=== PATIENT | female | born 1960 | race Caucasian/White ===

== ENCOUNTER → 2016-11-13 | Outpatient (CLI) | payer OTHER ==
[~2016-11-13] MED LIST: AMLO25TA PO; ATRIPLA PO; CALCTAB68 PO; DOXY100C PO; HYDR-3713 PO; HYDR12.55 PO; K-TA10TA2 PO; LEVA500T PO; LEVO112T2 PO; LISI40TAB PO
[2016-11-15 00:06] LABS: %CD3+CD4+CD8+ 1.9 % (Not Estab.); %CD3+CD4+CD8- 45.9 % (Not Estab.); %CD3+CD4-CD8+ 29.5 % (Not Estab.); %CD3+CD4-CD8- 2.3 % (Not Estab.); ABS CD3+CD4+CD8+ 44 /uL (Not Estab.); ABS CD3+CD4+CD8- 1056 /uL (Not Estab.); ABS CD3+CD4-CD8+ 679 /uL (Not Estab.); ABS CD3+CD4-CD8- 53 /uL (Not Estab.); CD4/CD8 NYSDOH RATIO 1.56 (Not Estab.); Eosinophils 5 % (.); HCT 38.1 % (34.0-46.6); HGB 13.1 g/dL (11.1-15.9); Monocytes 8 % (.); Neutrophils 41 % (.); WBC 5.1 x10E3/uL (3.4-10.8)
== END ==
LOC: M SMT 09:26
PROVIDERS: ATTEND Internal Medicine Infectious Disease
DX: B20 Human immunodeficiency virus [HIV] disease (principal); E03.9 Hypothyroidism, unspecified; Z13.220 Encounter for screening for lipoid disorders

== ENCOUNTER → 2017-02-14 | Outpatient (CLI) | payer OTHER ==
[2017-02-14 14:19] LABS: ALBUMIN 3.5 GM/DL (3.2-5.2); ALBUMIN/GLOBULIN RATIO 0.97 (1.00-1.93); ALKALINE PHOSPHATASE 159 U/L (45-117); ALT/SGPT 26 U/L (12-78); ANION GAP 7 MEQ/L (8-16); AST/SGOT 22 U/L (15-37); BILIRUBIN,TOTAL 0.4 MG/DL (0.2-1.0); BLOOD UREA NITROGEN 16 MG/DL (7-18); CALCIUM LEVEL 8.7 MG/DL (8.5-10.1); CARBON DIOXIDE LEVEL 28 MEQ/L (21-32); CHLORIDE LEVEL 98 MEQ/L (98-107); CREATININE FOR GFR 0.96 MG/DL (0.55-1.02); GLOMERULAR FILTRATION RATE > 60.0 (>51); GLUCOSE, FASTING 101 MG/DL (70-105); POTASSIUM SERUM 4.1 MEQ/L (3.5-5.1); SODIUM LEVEL 133 MEQ/L (136-145); TOTAL PROTEIN 7.1 GM/DL (6.4-8.2)
[2017-02-16 00:06] LABS: %CD3+CD4+CD8+ 1.4 % (Not Estab.); %CD3+CD4+CD8- 48.4 % (Not Estab.); %CD3+CD4-CD8+ 27.1 % (Not Estab.); %CD3+CD4-CD8- 1.9 % (Not Estab.); ABS CD3+CD4+CD8+ 34 /uL (Not Estab.); ABS CD3+CD4+CD8- 1162 /uL (Not Estab.); ABS CD3+CD4-CD8+ 650 /uL (Not Estab.); ABS CD3+CD4-CD8- 46 /uL (Not Estab.); CD4/CD8 NYSDOH RATIO 1.79 (Not Estab.); Eosinophils 5 % (.); HCT 36.3 % (34.0-46.6); Monocytes 8 % (.); Neutrophils 42 % (.); WBC 5.4 x10E3/uL (3.4-10.8)
== END ==
LOC: M SMT 09:41
PROVIDERS: ATTEND Internal Medicine Infectious Disease
DX: B20 Human immunodeficiency virus [HIV] disease (principal); E03.9 Hypothyroidism, unspecified; Z23 Encounter for immunization
CPT/HCPCS: 36415; 80053; 81001; 84443; 86360; 87536; 90733; G0463

== ENCOUNTER → 2017-03-22 | Outpatient (CLI) | payer OTHER ==
[~2017-03-22] VITALS: Ht 162.6 cm; Wt 78.9 kg
[~2017-03-22] MED LIST changes: +CEPH250T PO; +CHLO25TA PO; +LIDOCAINE 2% INJ 100 MG/5 ML SDV (FOR ANES.) As Ordered ONE; +LISI-538 PO; +NS 1,000 ML IV ONE; +PROPOFOL 200 MG/20 ML VIAL As Ordered ONE
--- NOTE | 2017-03-22 10:07 | ROOR ---
Patient Name: Ailyn Ward Procedure Date: 03/22/2017 9:42 AM Date of : 1960 Age: 56 Room: [facility] Gender: Female Note Status: Finalized Procedure: Colonoscopy Indications: Screening for colorectal malignant neoplasm Providers: Hilario JAMES MD Referring MD: Neeru ABREU MD. Requesting Provider: Medicines: Monitored Anesthesia Care Complications: No immediate complications. Procedure: Pre-Anesthesia Assessment: - The heart rate, respiratory rate, oxygen saturations, blood pressure, adequacy of pulmonary ventilation, and response to care were monitored throughout the procedure. The Colonoscope was introduced through the anus and advanced to the cecum, identified by appendiceal orifice and ileocecal valve. The colonoscopy was performed without difficulty. The patient tolerated the procedure well. The quality of the bowel preparation was good. Findings: The perianal and digital rectal examinations were normal. A 5 mm polyp was found in the ascending colon. The polyp was semi-sessile. The polyp was removed with a cold snare. Resection and retrieval were complete. A 4 mm polyp was found in the rectum. The polyp was semi-sessile. Biopsies were taken with a cold forceps for histology. A few medium-mouthed diverticula were found in the sigmoid colon. The exam was otherwise without abnormality on direct and retroflexion views. Impression: - One 5 mm polyp in the ascending colon, removed with a cold snare. Resected and retrieved. - One 4 mm polypoid nodule in the ano-rectum. This is likely granulation/scar tissue. Biopsied. - Mild diverticulosis in the sigmoid colon. - The examination was otherwise normal on direct and retroflexion views. Recommendation: - Telephone endoscopist for pathology results in 2 weeks. - Repeat colonoscopy will be likely in 5 years, however I am awaiting pathology report. Hilario James MD Hilario JAMES MD 03/22/2017 10:06:42 AM This report has been signed electronically. Number of Addenda: 0 Note Initiated On: 03/22/2017 9:42 AM Estimated Blood Loss: Estimated blood loss: none.
[2017-03-22 10:22] VITALS: BP 130/74
== END ==
LOC: M OPP 08:42
PROVIDERS: ATTEND Internal Medicine Gastroenterology
DX: Z12.11 Encounter for screening for malignant neoplasm of colon (principal); D12.2 Benign neoplasm of ascending colon; K62.1 Rectal polyp; K57.30 Diverticulosis of large intestine without perforation or abscess without bleeding; B20 Human immunodeficiency virus [HIV] disease; E07.9 Disorder of thyroid, unspecified; I10 Essential (primary) hypertension; I51.9 Heart disease, unspecified; K92.9 Disease of digestive system, unspecified; Z89.512 Acquired absence of left leg below knee; Z85.9 Personal history of malignant neoplasm, unspecified; Z86.79 Personal history of other diseases of the circulatory system

== ENCOUNTER 2017-03-31 13:11 | Emergency (ER) | payer OTHER ==
[~2017-03-31] VITALS: Ht 162.6 cm; Wt 78.6 kg
[~2017-03-31 13:11] MED LIST changes: -CEPH250T PO; +LEVA1TAB2 PO; -LEVA500T PO; -LIDOCAINE 2% INJ 100 MG/5 ML SDV (FOR ANES.) As Ordered ONE; -NS 1,000 ML IV ONE; -PROPOFOL 200 MG/20 ML VIAL As Ordered ONE
[2017-03-31] MEDS ORDERED: K-TA10TA2 PO (13:24)
[2017-03-31] MEDS ORDERED: ACETAMINOPHEN TAB 650MG DOSE (2X325MG) PO ONE (15:00)
[2017-03-31] MEDS ORDERED: LIDOCAINE 2% W/EPIN INJ 20ML **PRES FREE As Ordered ONE (15:11)
[2017-03-31] MEDS ORDERED: LIDOCAINE 2% W/EPIN INJ 20ML **PRES FREE INJ ONE (15:15)
--- NOTE | 2017-03-31 15:21 | REP ---
AP LATERAL LEFT KNEE: 03/31/2017 CLINICAL HISTORY: Two views are provided. COMPARISON: 02/13/2015, 12/28/2012. FINDINGS: There has been a below-knee amputation in the upper one-third of the tibia. There is post amputation changes in the distal tibia and fibula. Degenerative changes are seen at the knee joint. The bones are demineralized. The distal femur shows an intramedullary kaylah into the distal femoral diametaphysis with a single transverse screw affixing it to the distal femur. There is no patellar subluxation or dislocation suggested. No fracture of any of these bones on an acute basis. There is an old fracture of the proximal fibular shaft. No definite joint effusion. No foreign body. No subcutaneous air about the bones at the amputation site. IMPRESSION: 1. Status post below-knee amputation without destructive change in the bone and with old post-traumatic changes of the proximal fibular shaft. No subcutaneous emphysema near the amputation stump. No destructive lesion. 2. Degenerative changes at the knee, some disuse atrophy and an intramedullary kaylah with a single transverse screw through the distal femoral shaft. Signed by Josse Marie MD 03/31/2017 07:42 P
[2017-03-31] MEDS ORDERED: CEPH250T PO (15:51)
[2017-03-31 15:52] VITALS: BP 136/91
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
== END 2017-03-31 15:57 | disposition home or self-care (01) ==
LOC: M ED 14:28
DX: S81.812A Laceration without foreign body, left lower leg, initial encounter (principal); W19.XXXA Unspecified fall, initial encounter; Y92.009 Unspecified place in unspecified non-institutional (private) residence as the place of occurrence of the external cause; Y93.89 Activity, other specified; Y99.8 Other external cause status; Z89.512 Acquired absence of left leg below knee; Z97.14 Presence of artificial left leg (complete) (partial); B20 Human immunodeficiency virus [HIV] disease; I10 Essential (primary) hypertension; E03.9 Hypothyroidism, unspecified; Z79.899 Other long term (current) drug therapy; F17.200 Nicotine dependence, unspecified, uncomplicated; Z87.440 Personal history of urinary (tract) infections; Z88.8 Allergy status to other drugs, medicaments and biological substances

== ENCOUNTER → 2017-07-30 | Outpatient (CLI) | payer OTHER ==
[~2017-07-30] MED LIST changes: +CEPH250T PO
[2017-07-30 14:24] LABS: ALBUMIN 3.3 GM/DL (3.2-5.2); ALBUMIN/GLOBULIN RATIO 0.97 (1.00-1.93); ALKALINE PHOSPHATASE 153 U/L (45-117); ALT/SGPT 28 U/L (12-78); ANION GAP 10 MEQ/L (8-16); AST/SGOT 24 U/L (15-37); BILIRUBIN,TOTAL 0.3 MG/DL (0.2-1.0); BLOOD UREA NITROGEN 16 MG/DL (7-18); CALCIUM LEVEL 8.6 MG/DL (8.5-10.1); CARBON DIOXIDE LEVEL 25 MEQ/L (21-32); CHLORIDE LEVEL 101 MEQ/L (98-107); CREATININE FOR GFR 0.95 MG/DL (0.55-1.02); GLOMERULAR FILTRATION RATE > 60.0 (>51); GLUCOSE, FASTING 88 MG/DL (70-105); POTASSIUM SERUM 4.1 MEQ/L (3.5-5.1); SODIUM LEVEL 136 MEQ/L (136-145); TOTAL PROTEIN 6.7 GM/DL (6.4-8.2)
[2017-08-01 14:17] LABS: Eosinophils 5 % (Not Estab.); HCT 32.4 % (34.0-46.6); HGB 11.3 g/dL (11.1-15.9); Monocytes 9 % (Not Estab.); Neutrophils 39 % (Not Estab.); WBC 4.7 x10E3/uL (3.4-10.8)
== END ==
LOC: M SMT 09:21
PROVIDERS: ATTEND Internal Medicine Infectious Disease
DX: B20 Human immunodeficiency virus [HIV] disease (principal); E03.9 Hypothyroidism, unspecified

== ENCOUNTER → 2017-12-04 | Outpatient (CLI) | payer OTHER ==
[2017-12-04 13:47] LABS: APPEARANCE, URINE HAZY (CLEAR); BACTERIA, URINE AUTO 1+ (NEGATIVE); BILIRUBIN, URINE AUTO NEGATIVE (NEGATIVE); BLOOD, URINE BLOOD NEGATIVE (NEGATIVE); COLOR, URINE YELLOW (YELLOW); GLUCOSE, URINE (UA) AUTO NEGATIVE (NEGATIVE); KETONE, URINE AUTO NEGATIVE (NEGATIVE); LEUKOCYTE ESTERASE, URINE AUTO 3+ (NEGATIVE); NITRITE, URINE AUTO NEGATIVE (NEGATIVE); PROTEIN, URINE AUTO NEGATIVE (NEGATIVE); RBC, URINE AUTO 1 /HPF (0-3); SPECIFIC GRAVITY URINE AUTO 1.008 (1.002-1.035); SQUAMOUS EPITHELIAL CELL UR AU 0 /HPF (0-6); UROBILINOGEN, URINE AUTO 0.2 mg/dL (0.0-2.0); WBC, URINE AUTO 3 /HPF (0-3)
[2017-12-04 13:54] LABS: ALBUMIN 3.5 GM/DL (3.2-5.2); ALBUMIN/GLOBULIN RATIO 0.92 (1.00-1.93); ALKALINE PHOSPHATASE 161 U/L (45-117); ALT/SGPT 37 U/L (12-78); ANION GAP 4 MEQ/L (8-16); AST/SGOT 30 U/L (7-37); BILIRUBIN,TOTAL 0.3 MG/DL (0.2-1.0); BLOOD UREA NITROGEN 22 MG/DL (7-18); CALCIUM LEVEL 8.7 MG/DL (8.5-10.1); CARBON DIOXIDE LEVEL 31 MEQ/L (21-32); CHLORIDE LEVEL 101 MEQ/L (98-107); CREATININE FOR GFR 0.92 MG/DL (0.55-1.30); GLOMERULAR FILTRATION RATE > 60.0 (>51); GLUCOSE, FASTING 75 MG/DL (70-100); POTASSIUM SERUM 4.3 MEQ/L (3.5-5.1); SODIUM LEVEL 136 MEQ/L (136-145); TOTAL PROTEIN 7.3 GM/DL (6.4-8.2)
[2017-12-06 10:14] LABS: QUANTIFERON GOLD TB Negative (Negative); TB Test (QFT) Antigen 0.24 IU/mL (.); TB Test (QFT) Antigen Minus Ni 0.02 IU/mL (.); TB Test (QFT) Mitogen 6.91 IU/mL (.); TB Test (QFT) Nil 0.22 IU/mL (.)
[2017-12-07 00:06] LABS: HIV-1 RNA PCR QUANT 2 LC550285 <20 copies/mL (.)
== END ==
LOC: M SMT 09:11
DX: B20 Human immunodeficiency virus [HIV] disease (principal); E03.9 Hypothyroidism, unspecified
CPT/HCPCS: 84443

== ENCOUNTER → 2017-12-05 | Outpatient (CLI) | payer OTHER ==
[2017-12-07 00:06] LABS: % CD8 Pos Lymph 30.6 % (12.0-35.5); %CD4 Pos Lymphs 50.3 % (30.8-58.5); ABS Eosinophils 0.3 x10E3/uL (0.0-0.4); ABS Lymphs 2.3 x10E3/uL (0.7-3.1); ABS Monocytes 0.4 x10E3/uL (0.1-0.9); ABS Neutophils 2.6 x10E3/uL (1.4-7.0); Abs CD4 Helper 1157 /uL (359-1519); Abs CD8 Suppres 704 /uL (109-897); CD4/CD8 Ratio 1.64 (0.92-3.72); Eosinophils 5 % (Not Estab.); HCT 35.1 % (34.0-46.6); Immature Grans 0 % (Not Estab.); Lymphocytes 42 % (Not Estab.); MCH 34.9 pg (26.6-33.0); MCHC 34.2 g/dL (31.5-35.7); MCV 102 fL (79-97); Monocytes 7 % (Not Estab.); Neutrophils 46 % (Not Estab.); Platelets 306 x10E3/uL (150-379); RBC 3.44 x10E6/uL (3.77-5.28); RDW 13.5 % (12.3-15.4); WBC 5.6 x10E3/uL (3.4-10.8)
== END ==
LOC: M SMT 09:04
DX: B20 Human immunodeficiency virus [HIV] disease (principal); E03.9 Hypothyroidism, unspecified
CPT/HCPCS: 36415

== ENCOUNTER → 2018-04-17 | Outpatient (CLI) | payer OTHER | LOC: M WHC 09:23 | DX: Z12.31 Encounter for screening mammogram for malignant neoplasm of breast (principal) | CPT/HCPCS: 77067 ==

== ENCOUNTER → 2018-06-27 | Outpatient (CLI) | payer OTHER ==
[2018-06-27 12:31] LABS: ALBUMIN 3.5 GM/DL (3.2-5.2); ALBUMIN/GLOBULIN RATIO 0.83 (1.00-1.93); ALKALINE PHOSPHATASE 154 U/L (45-117); ALT/SGPT 21 U/L (12-78); ANION GAP 9 MEQ/L (8-16); AST/SGOT 20 U/L (7-37); BILIRUBIN,TOTAL 0.4 MG/DL (0.2-1.0); BLOOD UREA NITROGEN 22 MG/DL (7-18); CALCIUM LEVEL 8.8 MG/DL (8.5-10.1); CARBON DIOXIDE LEVEL 27 MEQ/L (21-32); CHLORIDE LEVEL 100 MEQ/L (98-107); CHOLESTEROL LEVEL 184 MG/DL (<200); CHOLESTEROL RISK RATIO 3.172 (<5); CREATININE FOR GFR 1.19 MG/DL (0.55-1.30); GLOMERULAR FILTRATION RATE 49.8 (>51); GLUCOSE, FASTING 88 MG/DL (70-100); HDL CHOLESTEROL 58 MG/DL (>40); LDL CHOLESTEROL 106 MG/DL (<100); NON-HDL-C 126 MG/DL; SODIUM LEVEL 136 MEQ/L (136-145); THYROID STIMULATING HORMONE 0.352 uIU/ML (0.358-3.740); TOTAL PROTEIN 7.7 GM/DL (6.4-8.2); TRIGLYCERIDES LEVEL 99 MG/DL (<150)
[2018-06-27 13:58] LABS: APPEARANCE, URINE CLEAR (CLEAR); BACTERIA, URINE AUTO 1+ (NEGATIVE); BILIRUBIN, URINE AUTO NEGATIVE (NEGATIVE); BLOOD, URINE BLOOD 1+ (NEGATIVE); COLOR, URINE STRAW (YELLOW); GLUCOSE, URINE (UA) AUTO NEGATIVE (NEGATIVE); KETONE, URINE AUTO NEGATIVE (NEGATIVE); LEUKOCYTE ESTERASE, URINE AUTO 2+ (NEGATIVE); NITRITE, URINE AUTO NEGATIVE (NEGATIVE); PROTEIN, URINE AUTO NEGATIVE (NEGATIVE); RBC, URINE AUTO 1 /HPF (0-3); SPECIFIC GRAVITY URINE AUTO 1.008 (1.002-1.035); SQUAMOUS EPITHELIAL CELL UR AU 1 /HPF (0-6); UROBILINOGEN, URINE AUTO 0.2 mg/dL (0.0-2.0); WBC, URINE AUTO 1 /HPF (0-3)
[2018-07-02 14:20] LABS: % CD8 Pos Lymph 32.9 % (12.0-35.5); %CD4 Pos Lymphs 47.8 % (30.8-58.5); ABS Eosinophils 0.2 x10E3/uL (0.0-0.4); ABS Monocytes 0.5 x10E3/uL (0.1-0.9); ABS Neutophils 2.1 x10E3/uL (1.4-7.0); Abs CD4 Helper 956 /uL (359-1519); Abs CD8 Suppres 658 /uL (109-897); CD4/CD8 Ratio 1.45 (0.92-3.72); Eosinophils 5 % (Not Estab.); HCT 34.4 % (34.0-46.6); HGB 12.1 g/dL (11.1-15.9); HIV-1 RNA PCR QUANT 2 LC550285 <20 copies/mL (.); Immature Grans 0 % (Not Estab.); Lymphocytes 43 % (Not Estab.); MCH 35.2 pg (26.6-33.0); MCHC 35.2 g/dL (31.5-35.7); MCV 100 fL (79-97); Monocytes 10 % (Not Estab.); Neutrophils 42 % (Not Estab.); Platelets 319 x10E3/uL (150-379); RBC 3.44 x10E6/uL (3.77-5.28); RDW 13.4 % (12.3-15.4); WBC 4.9 x10E3/uL (3.4-10.8)
== END ==
LOC: M SMT 09:25
DX: B20 Human immunodeficiency virus [HIV] disease (principal); I10 Essential (primary) hypertension; E03.9 Hypothyroidism, unspecified
CPT/HCPCS: 84443

== ENCOUNTER → 2018-11-12 | Outpatient (CLI) | payer MEDICARE ==
[2018-11-12 14:17] LABS: APPEARANCE, URINE CLEAR (CLEAR); BACTERIA, URINE AUTO NEGATIVE (NEGATIVE); BILIRUBIN, URINE AUTO NEGATIVE (NEGATIVE); BLOOD, URINE BLOOD NEGATIVE (NEGATIVE); COLOR, URINE YELLOW (YELLOW); GLUCOSE, URINE (UA) AUTO NEGATIVE (NEGATIVE); KETONE, URINE AUTO NEGATIVE (NEGATIVE); LEUKOCYTE ESTERASE, URINE AUTO 1+ (NEGATIVE); NITRITE, URINE AUTO NEGATIVE (NEGATIVE); PROTEIN, URINE AUTO NEGATIVE (NEGATIVE); RBC, URINE AUTO 0 /HPF (0-3); SPECIFIC GRAVITY URINE AUTO 1.006 (1.002-1.035); SQUAMOUS EPITHELIAL CELL UR AU 0 /HPF (0-6); UROBILINOGEN, URINE AUTO 0.2 mg/dL (0.0-2.0); WBC, URINE AUTO 1 /HPF (0-3)
[2018-11-12 14:33] LABS: CALCIUM LEVEL 9.1 MG/DL (8.5-10.1); CREATININE FOR GFR 1.09 MG/DL (0.55-1.30); GLOMERULAR FILTRATION RATE 54.9 (>51)
[2018-11-12 14:34] LABS: ALBUMIN 3.5 GM/DL (3.2-5.2); BILIRUBIN,TOTAL 0.4 MG/DL (0.2-1.0); CHOLESTEROL RISK RATIO 2.819 (<5); THYROID STIMULATING HORMONE 0.207 uIU/ML (0.358-3.740); TOTAL PROTEIN 7.2 GM/DL (6.4-8.2)
[2018-11-13 15:42] LABS: FREE T4 1.22 NG/DL (0.76-1.46)
[2018-11-15 00:06] LABS: % CD8 Pos Lymph 34.1 % (12.0-35.5); %CD4 Pos Lymphs 46.7 % (30.8-58.5); ABS Eosinophils 0.3 x10E3/uL (0.0-0.4); ABS Lymphs 2.2 x10E3/uL (0.7-3.1); ABS Monocytes 0.5 x10E3/uL (0.1-0.9); ABS Neutophils 2.3 x10E3/uL (1.4-7.0); Abs CD4 Helper 1027 /uL (359-1519); Abs CD8 Suppres 750 /uL (109-897); CD4/CD8 Ratio 1.37 (0.92-3.72); Eosinophils 5 % (Not Estab.); HGB 12.1 g/dL (11.1-15.9); HIV-1 RNA PCR QUANT 2 LC550285 <20 copies/mL (.); Immature Grans 0 % (Not Estab.); Lymphocytes 42 % (Not Estab.); MCH 33.9 pg (26.6-33.0); MCHC 35.6 g/dL (31.5-35.7); MCV 95 fL (79-97); Monocytes 9 % (Not Estab.); Neutrophils 43 % (Not Estab.); Platelets 344 x10E3/uL (150-379); RBC 3.57 x10E6/uL (3.77-5.28); RDW 12.8 % (12.3-15.4); WBC 5.3 x10E3/uL (3.4-10.8)
== END ==
LOC: M SMT 09:23
PROVIDERS: ATTEND Internal Medicine Infectious Disease
DX: B20 Human immunodeficiency virus [HIV] disease (principal); I10 Essential (primary) hypertension; E03.9 Hypothyroidism, unspecified

== ENCOUNTER → 2019-03-06 | Outpatient (CLI) | payer MEDICARE ==
[~2019-03-06] MED LIST changes: +LISI40TA52 PO; -LISI40TAB PO
[2019-03-06 14:41] LABS: ALBUMIN 3.5 GM/DL (3.2-5.2); BILIRUBIN,TOTAL 0.7 MG/DL (0.2-1.0); CALCIUM LEVEL 9.4 MG/DL (8.5-10.1); CREATININE FOR GFR 1.23 MG/DL (0.55-1.30); GLOMERULAR FILTRATION RATE 47.7 (>51); POTASSIUM SERUM 4.4 MEQ/L (3.5-5.1); THYROID STIMULATING HORMONE 0.061 uIU/ML (0.358-3.740); TOTAL PROTEIN 6.9 GM/DL (6.4-8.2)
[2019-03-06 16:17] LABS: FREE T4 1.5 NG/DL (0.76-1.46)
[2019-03-06 16:59] LABS: TOTAL T3 115.6 NG/DL (60.0-181.0)
[2019-03-12 00:08] LABS: HIV-1 RNA PCR QUANT 2 LC550285 <20 copies/mL (.)
== END ==
LOC: M SMT 09:11
PROVIDERS: ATTEND Internal Medicine Infectious Disease
DX: B20 Human immunodeficiency virus [HIV] disease (principal); E03.9 Hypothyroidism, unspecified

== ENCOUNTER → 2019-03-09 | Outpatient (CLI) | payer MEDICARE ==
[2019-03-10 14:11] LABS: % CD8 Pos Lymph 32.4 % (12.0-35.5); %CD4 Pos Lymphs 45.2 % (30.8-58.5); ABS Eosinophils 0.2 x10E3/uL (0.0-0.4); ABS Lymphs 2.1 x10E3/uL (0.7-3.1); ABS Monocytes 0.5 x10E3/uL (0.1-0.9); ABS Neutophils 3.5 x10E3/uL (1.4-7.0); Abs CD4 Helper 949 /uL (359-1519); Abs CD8 Suppres 680 /uL (109-897); Eosinophils 4 % (Not Estab.); HCT 35.3 % (34.0-46.6); Immature Grans 0 % (Not Estab.); Lymphocytes 33 % (Not Estab.); MCH 34.3 pg (26.6-33.0); MCV 101 fL (79-97); Monocytes 8 % (Not Estab.); Neutrophils 55 % (Not Estab.); Platelets 322 x10E3/uL (150-450); RDW 13.1 % (12.3-15.4); WBC 6.3 x10E3/uL (3.4-10.8)
== END ==
LOC: M SMT 09:07
PROVIDERS: ATTEND Internal Medicine Infectious Disease
DX: B20 Human immunodeficiency virus [HIV] disease (principal); E03.9 Hypothyroidism, unspecified

== ENCOUNTER 2019-04-25 13:18 | Observation (INO) | payer MEDICARE ==
[~2019-04-25] VITALS: Ht 162.6 cm; Wt 82.7 kg
[2019-04-25 17:06] LABS: BASO % 0.2 % (0.0-1.0); EOS # 0.1 10^3/uL (0.0-0.50); EOS % 0.6 % (0.0-3.0); HEMATOCRIT 34.9 % (36.0-47.0); HEMOGLOBIN 12.5 g/dl (12.0-15.5); LYMPH # 2.8 10^3/uL (1.5-4.5); LYMPH % 22.4 % (24.0-44.0); MEAN CORPUSCULAR HEMOGLOBIN 34.4 pg (27.0-33.0); MEAN CORPUSCULAR HGB CONC 35.8 g/dl (32.0-36.5); MEAN CORPUSCULAR VOLUME 96.1 fl (80.0-96.0); MONO # 1.2 10^3/uL (0.0-0.8); MONO % 9.7 % (0.0-5.0); NEUTROPHILS # 8.2 10^3/uL (1.8-7.7); NEUTROPHILS % 66.9 % (36.0-66.0); PLATELET COUNT, AUTOMATED 307 10^3/uL (150-450); RED BLOOD COUNT 3.63 10^6/uL (4.00-5.40); WHITE BLOOD COUNT 12.3 10^3/uL (4.0-10.0)
[2019-04-25 17:19] LABS: D-DIMER QUANT 420.32 ng/ml (<500)
[2019-04-25 17:27] LABS: BLOOD UREA NITROGEN 16 MG/DL (7-18); CARBON DIOXIDE LEVEL 28 MEQ/L (21-32); CHLORIDE LEVEL 95 MEQ/L (98-107); CREATININE FOR GFR 1.18 MG/DL (0.55-1.30); GLOMERULAR FILTRATION RATE 50.1 (>51); GLUCOSE, FASTING 95 MG/DL (70-100); POTASSIUM SERUM 3.5 MEQ/L (3.5-5.1); SODIUM LEVEL 132 MEQ/L (136-145)
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
[2019-04-25] MEDS ORDERED: ISOVUE-370 76% 100ML VIAL (Q9967) As Ordered ONE (19:11)
[2019-04-25 19:22] LABS: INR 1.01
[2019-04-25 19:23] LABS: PARTIAL THROMBOPLASTIN TIME 32.5 SECONDS (25.0-38.4)
[2019-04-25 19:37] LABS: NT-PRO BNP 238 PG/ML (<125); TROPONIN I < 0.02 NG/ML (< 0.10)
[2019-04-25] MEDS ORDERED: NS 500 ML IV ONE (20:00)
--- NOTE | 2019-04-25 20:46 | REPVR ---
EXAM: CT Angiography Chest With Contrast EXAM DATE/TIME: 04/25/2019 7:38 PM CLINICAL HISTORY: 58 years old, female; Other: Dvt; Additional info: Dvt, R/O pe TECHNIQUE: Imaging protocol: Axial computed tomographic angiography images of the chest with intravenous contrast using CT angiography protocol. Coronal and sagittal reformatted images were created and reviewed. 3D rendering: MIP reconstructed images were created and reviewed. Radiation optimization: All CT scans at this facility use at least one of these dose optimization techniques: automated exposure control; mA and/or kV adjustment per patient size (includes targeted exams where dose is matched to clinical indication); or iterative reconstruction. Contrast material: ISOVUE 370; Contrast volume: 75 ml; Contrast route: IV; COMPARISON: CT ANGIO CHEST 11/14/2014 6:04 PM FINDINGS: Pulmonary arteries: Normal. No pulmonary emboli. Aorta: Unremarkable. No aortic aneurysm. No aortic dissection. Lungs: Paraseptal type emphysema at the lung apices. 4 mm groundglass nodule right lower lobe (series 402 image 42 unchanged from previous. 2 mm groundglass nodule right upper lobe (series 42 image 20) without change . Pleural-based nodule left mid lung field measuring 3.2 mm (series 402 image 34) unchanged. Pleural space: No pleural fluid. No pneumothorax. Heart: Unremarkable. No cardiomegaly. No pericardial effusion. Mediastinum: There's a small sliding hiatal hernia. Gallbladder and bile ducts: Surgical clips in the gallbladder fossa. Stomach and bowel: Diverticula noted at the level of the hepatic flexure. No diverticulitis seen. Lymph nodes: Unremarkable. No enlarged lymph nodes. Bones/joints: Unremarkable. No acute fracture. Soft tissues: Unremarkable. IMPRESSION: 1. No acute pulmonary embolism 2. Stable bilateral pulmonary nodules. No followup required. 3. Small sliding hiatal hernia 4. Colonic diverticula. Electronically signed by: Gricel Campa On 04/25/2019 20:46:19 PM
[2019-04-25] MEDS: BIKTARVY PO SCH (21:00)
[2019-04-25] MEDS ORDERED: ENOXAPARIN 100MG/1ML SYRINGE (J1650) SC SCH (21:00)
[2019-04-25] MEDS ORDERED: BIKT1TAB PO (21:54)
[2019-04-25] MEDS ORDERED: ACETAMINOPHEN TAB 650MG DOSE (2X325MG) PO PRN (23:00)
[2019-04-25] MEDS ORDERED: CALCCAP4 PO (23:04)
[2019-04-25] MEDS ORDERED: LEVO100T5 PO (23:04)
--- NOTE | 2019-04-25 23:09 | HPEPDOC ---
General Date of Admission 04/25/19 Date of Service: Apr 25, 2019 Primary Care Physician: Neeru Perry MD Attending Physician: TOM CRAIG MD Chief Complaint The patient is a 58-year-old female admitted with a reason for visit of Skin Issue. Source: Patient Exam Limitations: No limitations Timing/Duration: Unsure Severity: Mild Associated Symptoms: Unobtainable History of Present Illness 58 years old white female with past medical history of HIV positive status post cholecystectomy. Left BKA, status post , history of hypertension, history of hypothyroidism, presented with chief complaints of small open area at the stump of left leg not improving and also swelling and increased pain to the to the left leg) popliteal. Unable to the prosthesis on. Patient denies fever, nausea, vomiting, abdominal pain, chest pain, shortness of breath, etc. Home Medications Scheduled Calcium/Vitamin D (Calcium 600 + D 600-400 mg-Unit) 1 Tab Tab, 1 TAB PO BID, (Reported) Chlorthalidone (Chlorthalidone) 25 Mg Tab, 25 MG PO DAILY, (Reported) Levothyroxine Sodium (Levothyroxine Sodium) 112 Mcg Tab, 112 MCG PO DAILY, ( Reported) Lisinopril (Lisinopril) 20 Mg Tab, 20 MG PO DAILY, (Reported) Miscellaneous Medications Bictegrav/Emtricit/Tenofov Ala (Biktarvy 50-200-25 mg Tablet) 1 Each Tablet, (Reported) Allergies Coded Allergies: atenolol (Verified Allergy, Unknown, 04/25/19) Past Medical History Medical History HIV positive status post cholecystectomy, , left BKA, hypertension, hypothyroidism Surgical History As above Family History Significant Family History: No pertinent family hx Social History * Smoker: Denies Alcohol: Denies Drugs: denies A-FIB/CHADSVASC A-FIB History Current/History of A-Fib/PAF?: No Review of Systems Constitutional: Denies: Chills, Fever, Malaise, Night Sweats, Weakness, Fatigue, Weight Loss, Lethargy, Other Eyes: Denies: Pain, Vision change, Conjunctivae inflammation, Eyelid inflamma tion, Redness, Other ENT: Denies: Head Aches, Ear Pain, Dysphagia, Sinus Congestion, Post Nasal Drip, Sore Throat, Epistaxis, Other Symptoms Skin: Denies: Rash, Lesions, Jaundice, Bruising, Itching, Dry, Breakdown, Nail Changes, Other Pulmonary: Denies: Dyspnea, Cough, Pleuritic Chest Pain, Other Symptoms Cardiovascular: Denies: Chest Pain, Palpitations, Orthopnea, Paroxysmal Noc. Dyspnea, Edema, Lt Headedness, Other Symptoms Gastrointestinal: Denies: Nausea, Vomiting, Abdominal Pain, Diarrhea, Constipation, Melena, Hematochezia, Other Symptoms Genitourinary: Denies: Dysuria, Frequency, Incontinence, Hematuria, Retention, Other Symptoms Hematologic: Denies: Bruising, Bleeding Excessively, Petecchia, Purpura, Enlarged Lymph Nodes, Other Hematologic Endocrine: Denies: Polydipsia, Polyphagia, Polyuria, Heat Intolerance, Cold Intolerance, Other Endocrine Sx Musculoskeletal: Reports: Other Symptoms (pain and swelling at the left popliteal area just above the left stump) Neurological: Denies: Weakness, Numbness, Incoordination, Change in speech, Confusion, Seizures, Other Symptoms Psych: Denies: Mood Normal, Anxiety, Depression, Memory Issues, Thoughts of Self Harm, Anger, Thoughts of Harming Other, Other Psych Physical Examination General Exam: Positive: Alert, Cooperative Eye Exam: Positive: PERRLA, Conjunctiva & lids normal ENT Exam: Positive: Atraumatic Neck Exam: Positive: Supple Chest Exam: Positive: Clear to auscultation, Normal air movement Heart Exam: Positive: Rate Normal, Normal S1, Normal S2 Abdomen Exam: Positive: Normal bowel sounds, Soft Extremity Exam: Positive: Other (small area of tenderness and swelling and popliteal area just above the left stump) Skin Exam: Positive: Nl turgor and temperature Neuro Exam: Positive: Normal Speech, Strength at 5/5 X4 ext, Sensation Intact Psych Exam: Positive: Mental status NL, Mood NL, Oriented x 3 Vital Signs Vital Signs Date Time Temp Pulse Resp B/P (MAP) Pulse Ox O2 Delivery O2 Flow Rate FiO2 04/25/19 19:57 99.4 74 18 124/84 (97) 100 Room Air 04/25/19 16:10 2.0 Laboratory Data Labs 24H Laboratory Tests 2 04/25/19 16:52: Immature Granulocyte % (Auto) 0.2, White Blood Count 12.3H, Red Blood Count 3.63L, Hemoglobin 12.5, Hematocrit 34.9L, Mean Corpuscular Volume 96.1H, Mean Corpuscular Hemoglobin 34.4H, Mean Corpuscular Hemoglobin Concent 35.8, Red Cell Distribution Width 11.7, Platelet Count 307, Neutrophils (%) (Auto) 66.9H, Lymphocytes (%) (Auto) 22.4L, Monocytes (%) (Auto) 9.7H, Eosinophils (%) (Auto) 0.6, Basophils (%) (Auto) 0.2, Neutrophils # (Auto) 8.2H, Lymphocytes # (Auto) 2.8, Monocytes # (Auto) 1.2H, Eosinophils # (Auto) 0.1, Basophils # (Auto) 0.0, Nucleated Red Blood Cells % (auto) 0.0, Prothrombin Time 13.0, Prothromb Time International Ratio 1.01, Activated Partial Thromboplast Time 32.5, D-Dimer, Quantitative 420.32, Anion Gap 9, Glomerular Filtration Rate 50.1L, Blood Urea Nitrogen 16, Creatinine 1.18, Sodium Level 132L, Potassium Level 3.5, Chloride Level 95L, Carbon Dioxide Level 28, Calcium Level 9.0, Troponin I < 0.02, FH-Pkg-Z-Type Natriuretic Peptide 238H 04/25/19 20:14: 04/25/19 20:15: CBC/BMP Laboratory Tests 04/25/19 16:52 Red Blood Count 3.63 L, Mean Corpuscular Volume 96.1 H, Mean Corpuscular Hemoglobin 34.4 H, Mean Corpuscular Hemoglobin Concent 35.8, Red Cell Distribution Width 11.7, Neutrophils (%) (Auto) 66.9 H, Lymphocytes (%) (Auto) 22.4 L, Monocytes (%) (Auto) 9.7 H, Eosinophils (%) (Auto) 0.6, Basophils (%) (Auto) 0.2, Neutrophils # (Auto) 8.2 H, Lymphocytes # (Auto) 2.8, Monocytes # (Auto) 1.2 H, Eosinophils # (Auto) 0.1, Basophils # (Auto) 0.0, Calcium Level 9.0 Problems (1) DVT (deep venous thrombosis) Status: Acute Problem Text: Admit to observation to medical floor Start Lovenox 1 mg/kg every 12 hours Will request medical consultation with Dr. sethi available on saturday Can be started on by mouth anticoagulation in a.m. Continue home medications PT eval in a.m. DVT prophylaxis not needed as patient is receiving full strength Lovenox Regular diet HIV meds as per Dr. sethi Plan / VTE VTE Prophylaxis Ordered?: Yes TOM CRAIG MD Apr 25, 2019 23:08
[2019-04-26 00:40] VITALS: BP 125/89
[2019-04-26 06:00] VITALS: BP 120/66
[2019-04-26 06:45] LABS: HEMATOCRIT 31.8 % (36.0-47.0); HEMOGLOBIN 11.1 g/dl (12.0-15.5); MEAN CORPUSCULAR HEMOGLOBIN 34.8 pg (27.0-33.0); MEAN CORPUSCULAR HGB CONC 34.9 g/dl (32.0-36.5); MEAN CORPUSCULAR VOLUME 99.7 fl (80.0-96.0); PLATELET COUNT, AUTOMATED 274 10^3/uL (150-450); RED BLOOD COUNT 3.19 10^6/uL (4.00-5.40); WHITE BLOOD COUNT 8.3 10^3/uL (4.0-10.0)
[2019-04-26] MEDS ORDERED: ELIQ5TAB PO (07:09)
[2019-04-26 07:12] LABS: BILIRUBIN,TOTAL 1.1 MG/DL (0.2-1.0); CALCIUM LEVEL 8.9 MG/DL (8.5-10.1); CREATININE FOR GFR 1.17 MG/DL (0.55-1.30); GLOMERULAR FILTRATION RATE 50.6 (>51); POTASSIUM SERUM 3.3 MEQ/L (3.5-5.1); TOTAL PROTEIN 7.3 GM/DL (6.4-8.2)
[2019-04-26] MEDS: LISINOPRIL 20 MG TAB PO SCH (09:00)
[2019-04-26] MEDS ORDERED: POTASSIUM CHLORIDE 10 MEQ SR TABLET PO ONE (09:15)
[2019-04-26] MEDS: LEVOTHYROXINE 100MCG TABLET (0.1MG) PO SCH (10:19)
[2019-04-26] MEDS: APIXABAN 5 MG TAB (ELIQUIS) PO SCH ×2 (10:19→21:59)
[2019-04-26 14:00] VITALS: BP 134/85
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
[2019-04-26] MEDS: BIKTARVY PO SCH (21:59)
[2019-04-26 22:00] VITALS: BP 121/80
[2019-04-27] MEDS: LEVOTHYROXINE 100MCG TABLET (0.1MG) PO SCH (05:49)
[2019-04-27 06:00] VITALS: BP 136/69
[2019-04-27 06:46] LABS: BASO % 0.6 % (0.0-1.0); EOS # 0.2 10^3/uL (0.0-0.50); EOS % 2.3 % (0.0-3.0); HEMATOCRIT 31.9 % (36.0-47.0); HEMOGLOBIN 11.2 g/dl (12.0-15.5); LYMPH # 2.4 10^3/uL (1.5-4.5); LYMPH % 37.1 % (24.0-44.0); MEAN CORPUSCULAR HEMOGLOBIN 34.9 pg (27.0-33.0); MEAN CORPUSCULAR HGB CONC 35.1 g/dl (32.0-36.5); MEAN CORPUSCULAR VOLUME 99.4 fl (80.0-96.0); MONO # 0.7 10^3/uL (0.0-0.8); MONO % 11.2 % (0.0-5.0); NEUTROPHILS # 3.1 10^3/uL (1.8-7.7); NEUTROPHILS % 48.5 % (36.0-66.0); PLATELET COUNT, AUTOMATED 287 10^3/uL (150-450); RED BLOOD COUNT 3.21 10^6/uL (4.00-5.40); WHITE BLOOD COUNT 6.4 10^3/uL (4.0-10.0)
[2019-04-27 07:08] LABS: CALCIUM LEVEL 8.4 MG/DL (8.5-10.1); CREATININE FOR GFR 1.26 MG/DL (0.55-1.30); GLOMERULAR FILTRATION RATE 46.4 (>51); POTASSIUM SERUM 3.1 MEQ/L (3.5-5.1)
[2019-04-27 07:53] VITALS: BP 128/74
[2019-04-27] MEDS: LISINOPRIL 20 MG TAB PO SCH (07:53)
[2019-04-27] MEDS: APIXABAN 5 MG TAB (ELIQUIS) PO SCH (08:00)
[2019-04-27] MEDS ORDERED: ACET-683 PO (10:20)
[2019-04-27] MEDS ORDERED: POTASSIUM CHLORIDE 10 MEQ SR TABLET PO ONE (10:45)
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
[2019-04-28 10:49] LABS: DRVV SCREEN 43.1 SEC
[2019-04-28 11:08] LABS: PTT LUPUS TYPE ANTICOAG SCREEN 1.1 (0-1.2)
[2019-05-02 00:06] LABS: ANTI THROMBIN 3 ANTIGEN IMMUNO 128 % (72-124); ANTI THROMBIN 3 FUNCT ACTIVITY 102 % (75-135); CARDIOLIPIN IGA ANTIBODY <9 APL U/mL (0-11); CARDIOLIPIN IGG ANTIBODY <9 GPL U/mL (0-14); CARDIOLIPIN IGM ANTIBODY 18 MPL U/mL (0-12); PHOSPHOLIPIDS LEVEL 200 mg/dL (150-250); PROTEIN C FUNCTIONAL ACTIVITY 150 % (73-180); PROTEIN S FUNCTIONAL ACTIVITY 48 % (63-140)
== END 2019-04-27 12:27 | disposition home or self-care (01) ==
LOC: M ED 13:18 → M ED INP 22:54 → M MSPAV 04-26 00:21
PROVIDERS: ADMIT Internal Medicine; ATTEND Internal Medicine Nephrology
DX: I82.432 Acute embolism and thrombosis of left popliteal vein (principal); M79.89 Other specified soft tissue disorders; B20 Human immunodeficiency virus [HIV] disease; I11.0 Hypertensive heart disease with heart failure; E03.9 Hypothyroidism, unspecified; Z89.512 Acquired absence of left leg below knee; I50.30 Unspecified diastolic (congestive) heart failure; Z86.79 Personal history of other diseases of the circulatory system; Z85.44 Personal history of malignant neoplasm of other female genital organs; H90.42 Sensorineural hearing loss, unilateral, left ear, with unrestricted hearing on the contralateral side; R91.1 Solitary pulmonary nodule; K44.9 Diaphragmatic hernia without obstruction or gangrene; K57.30 Diverticulosis of large intestine without perforation or abscess without bleeding; Z79.899 Other long term (current) drug therapy; Z79.01 Long term (current) use of anticoagulants; Z88.8 Allergy status to other drugs, medicaments and biological substances
CPT/HCPCS: 36415; 71275; 80048; 80053; 81240; 81241; 83880; 84311; 84484; 85025; 85027; 85300; 85301; 85303; 85305; 85379; 85610; 85730; 86147; 93971; 96372; 97116; 97161; 97530; 99284; G0378; J1650; Q9967

== ENCOUNTER → 2019-04-30 | Outpatient (REF) | payer MEDICARE ==
[~2019-04-30] MED LIST changes: +ACET-683 PO; +BIKT1TAB PO; +CALCCAP4 PO; +ELIQ5TAB PO; +LEVO100T5 PO
== END ==
LOC: M LAB REF 16:36
PROVIDERS: ATTEND Surgery Vascular Surgery
DX: T87.44 Infection of amputation stump, left lower extremity (principal)

== ENCOUNTER → 2019-07-06 | Outpatient (CLI) | payer MEDICARE ==
[2019-07-06 11:55] LABS: ALBUMIN 3.4 GM/DL (3.2-5.2); BILIRUBIN,TOTAL 0.7 MG/DL (0.2-1.0); CALCIUM LEVEL 9.2 MG/DL (8.5-10.1); CREATININE FOR GFR 1.3 MG/DL (0.55-1.30); FREE T4 1.34 NG/DL (0.76-1.46); GLOMERULAR FILTRATION RATE 44.8 (>51); POTASSIUM SERUM 4.4 MEQ/L (3.5-5.1); THYROID STIMULATING HORMONE 0.246 uIU/ML (0.358-3.740); TOTAL PROTEIN 7.1 GM/DL (6.4-8.2)
[2019-07-07 14:59] LABS: % CD8 Pos Lymph 32.9 % (12.0-35.5); %CD4 Pos Lymphs 47.1 % (30.8-58.5); ABS Eosinophils 0.4 x10E3/uL (0.0-0.4); ABS Lymphs 1.7 x10E3/uL (0.7-3.1); ABS Monocytes 0.6 x10E3/uL (0.1-0.9); ABS Neutophils 2.3 x10E3/uL (1.4-7.0); Abs CD4 Helper 801 /uL (359-1519); Abs CD8 Suppres 559 /uL (109-897); CD4/CD8 Ratio 1.43 (0.92-3.72); Eosinophils 7 % (Not Estab.); HCT 34.2 % (34.0-46.6); HGB 11.9 g/dL (11.1-15.9); Immature Grans 0 % (Not Estab.); Lymphocytes 34 % (Not Estab.); MCH 33.9 pg (26.6-33.0); MCHC 34.8 g/dL (31.5-35.7); MCV 97 fL (79-97); Monocytes 11 % (Not Estab.); Neutrophils 48 % (Not Estab.); Platelets 297 x10E3/uL (150-450); RBC 3.51 x10E6/uL (3.77-5.28); RDW 13.9 % (12.3-15.4); WBC 4.8 x10E3/uL (3.4-10.8)
[2019-07-09 00:09] LABS: HIV-1 RNA PCR QUANT 2 LC550285 <20 copies/mL (.)
== END ==
LOC: M SMT 08:42
PROVIDERS: ATTEND Internal Medicine Infectious Disease
DX: E03.9 Hypothyroidism, unspecified (principal); B20 Human immunodeficiency virus [HIV] disease
CPT/HCPCS: 36415; 80053; 84439; 84443; 86360; 87536; 90682; G0463

== ENCOUNTER → 2019-07-15 | Outpatient (CLI) | payer MEDICARE ==
--- NOTE | 2019-07-15 09:50 | REP ---
BILATERAL SCREENING DIGITAL MAMMOGRAM WITH 3D TOMOSYNTHESIS: There are no palpable abnormalities or other breast complaints. The the patient states she had a clinical breast examination July,. The the patient states she performs self-breast examinations 12 times per year The Tyrer-Cuzick Score is: 6.6% . Comparison is 07/01/2014. There are scattered areas of fibroglandular density. There is no dominant mass, micro calcific cluster or architectural distortion that would indicate malignancy. There are no additional findings on 3D tomosynthesiss. There is no change from the prior study. Impression: BIRADS/ACR category 1 mammogram. Negative. Recommendation: Routine annual screening mammography. This mammogram was interpreted with the aid of a FDA approved computer-aided detection system. A. Negative mammogram reports should not delay biopsy if a dominant or clinically suspicious mass is present. B. Not all breast cancers are identified by mammography or tomosynthesis. C. Adenosis and dense breasts may obscure an underlying neoplasm. Patient letter M1. Electronically Signed by Mark Mora MD 07/15/2019 09:42 A
== END ==
LOC: M WHC 07:51
PROVIDERS: ATTEND Internal Medicine Infectious Disease
DX: Z12.31 Encounter for screening mammogram for malignant neoplasm of breast (principal)

== ENCOUNTER → 2019-11-05 | Outpatient (CLI) | payer MEDICARE ==
[2019-11-05 10:47] LABS: APPEARANCE, URINE CLEAR (CLEAR); BACTERIA, URINE AUTO 1+ (NEGATIVE); BILIRUBIN, URINE AUTO NEGATIVE (NEGATIVE); BLOOD, URINE BLOOD NEGATIVE (NEGATIVE); COLOR, URINE YELLOW (YELLOW); GLUCOSE, URINE (UA) AUTO NEGATIVE (NEGATIVE); KETONE, URINE AUTO NEGATIVE (NEGATIVE); LEUKOCYTE ESTERASE, URINE AUTO 2+ (NEGATIVE); MUCUS, URINE SMALL (NEGATIVE); NITRITE, URINE AUTO NEGATIVE (NEGATIVE); PROTEIN, URINE AUTO NEGATIVE (NEGATIVE); RBC, URINE AUTO 1 /HPF (0-3); SPECIFIC GRAVITY URINE AUTO 1.012 (1.002-1.035); SQUAMOUS EPITHELIAL CELL UR AU 1 /HPF (0-6); UROBILINOGEN, URINE AUTO 0.2 mg/dL (0.0-2.0); WBC, URINE AUTO 2 /HPF (0-3)
[2019-11-05 11:14] LABS: ALBUMIN 3.5 GM/DL (3.2-5.2); BILIRUBIN,TOTAL 0.6 MG/DL (0.2-1.0); CALCIUM LEVEL 9.2 MG/DL (8.5-10.1); CREATININE FOR GFR 1.21 MG/DL (0.55-1.30); FREE T4 1.43 NG/DL (0.76-1.46); GLOMERULAR FILTRATION RATE 48.5 (>51); POTASSIUM SERUM 3.9 MEQ/L (3.5-5.1); THYROID STIMULATING HORMONE 0.219 uIU/ML (0.358-3.740); TOTAL PROTEIN 7.3 GM/DL (6.4-8.2)
[2019-11-10 00:06] LABS: %CD4 Pos Lymphs 50.7 % (30.8-58.5); ABS Eosinophils 0.2 x10E3/uL (0.0-0.4); ABS Lymphs 2.2 x10E3/uL (0.7-3.1); ABS Monocytes 0.7 x10E3/uL (0.1-0.9); ABS Neutophils 2.5 x10E3/uL (1.4-7.0); Abs CD4 Helper 1115 /uL (359-1519); Abs CD8 Suppres 638 /uL (109-897); CD4/CD8 Ratio 1.75 (0.92-3.72); Eosinophils 4 % (Not Estab.); HGB 12.2 g/dL (11.1-15.9); HIV-1 RNA PCR QUANT 2 LC550285 <20 copies/mL (.); Immature Grans 1 % (Not Estab.); Lymphocytes 39 % (Not Estab.); MCH 34.5 pg (26.6-33.0); MCHC 34.9 g/dL (31.5-35.7); MCV 99 fL (79-97); Monocytes 12 % (Not Estab.); Neutrophils 43 % (Not Estab.); Platelets 360 x10E3/uL (150-450); RBC 3.54 x10E6/uL (3.77-5.28); RDW 12.9 % (11.7-15.4); WBC 5.7 x10E3/uL (3.4-10.8)
== END ==
LOC: M PLALAB 08:16
PROVIDERS: ATTEND Internal Medicine Infectious Disease
DX: B20 Human immunodeficiency virus [HIV] disease (principal); E03.9 Hypothyroidism, unspecified
CPT/HCPCS: 36415; 80053; 81001; 84439; 84443; 86360; 87536; G0463

== ENCOUNTER → 2020-03-01 | Outpatient (REF) | payer MEDICARE ==
[2020-03-01 16:17] LABS: ALBUMIN 3.6 GM/DL (3.2-5.2); BILIRUBIN,TOTAL 1.2 MG/DL (0.2-1.0); CALCIUM LEVEL 8.8 MG/DL (8.5-10.1); CREATININE FOR GFR 1.24 MG/DL (0.55-1.30); FREE T4 1.64 NG/DL (0.76-1.46); GLOMERULAR FILTRATION RATE 47.1 (>51); MAGNESIUM LEVEL 1.9 MG/DL (1.8-2.4); POTASSIUM SERUM 3.9 MEQ/L (3.5-5.1); THYROID STIMULATING HORMONE 0.104 uIU/ML (0.358-3.740); TOTAL PROTEIN 7.5 GM/DL (6.4-8.2)
== END ==
LOC: M SFHCPLAZ 12:56
PROVIDERS: ATTEND Internal Medicine Infectious Disease
DX: R20.2 Paresthesia of skin (principal); E03.9 Hypothyroidism, unspecified; Z79.899 Other long term (current) drug therapy
CPT/HCPCS: 36415; 80053; 82607; 82746; 83036; 83735; 84439; 84443; G0463

== ENCOUNTER → 2020-04-28 | Outpatient (REF) | payer MEDICARE ==
[2020-04-28 11:31] LABS: ALBUMIN 3.7 GM/DL (3.2-5.2); BILIRUBIN,TOTAL 0.9 MG/DL (0.2-1.0); CALCIUM LEVEL 9.3 MG/DL (8.5-10.1); CREATININE FOR GFR 1.4 MG/DL (0.55-1.30); FREE T4 1.3 NG/DL (0.76-1.46); POTASSIUM SERUM 3.9 MEQ/L (3.5-5.1); THYROID STIMULATING HORMONE 3.28 uIU/ML (0.358-3.740); TOTAL PROTEIN 7.6 GM/DL (6.4-8.2)
[2020-05-23 08:07] LABS: % CD8 Pos Lymph 32.1 % (12.0-35.5); %CD4 Pos Lymphs 47.3 % (30.8-58.5); ABS Eosinophils 0.2 x10E3/uL (0.0-0.4); ABS Monocytes 0.6 x10E3/uL (0.1-0.9); ABS Neutophils 3.1 x10E3/uL (1.4-7.0); Abs CD4 Helper 946 /uL (359-1519); Abs CD8 Suppres 642 /uL (109-897); CD4/CD8 Ratio 1.47 (0.92-3.72); Eosinophils 3 % (Not Estab.); HCT 37.7 % (34.0-46.6); HGB 13.1 g/dL (11.1-15.9); HIV-1 RNA PCR QUANT 2 LC550285 <20 copies/mL (.); Immature Grans 0 % (Not Estab.); Lymphocytes 33 % (Not Estab.); MCH 34.6 pg (26.6-33.0); MCHC 34.7 g/dL (31.5-35.7); MCV 100 fL (79-97); Monocytes 9 % (Not Estab.); Neutrophils 54 % (Not Estab.); Platelets 335 x10E3/uL (150-450); RBC 3.79 x10E6/uL (3.77-5.28); RDW 12.6 % (11.7-15.4); WBC 5.9 x10E3/uL (3.4-10.8)
== END ==
LOC: M SFHCPLAZ 08:21
PROVIDERS: ATTEND Internal Medicine Infectious Disease
DX: B20 Human immunodeficiency virus [HIV] disease (principal); E03.9 Hypothyroidism, unspecified
CPT/HCPCS: 36415; 80053; 84439; 84443; 86360; 87536; G0463

== ENCOUNTER → 2020-07-18 | Outpatient (CLI) | payer MEDICARE ==
--- NOTE | 2020-07-18 10:39 | REPMRS ---
Patient History The patient states she had a clinical breast exam in February 2020. No known family history of cancer. Took hormonal contraceptives for 12 years. Digital Woman Screen Mammo: July 18, 2020 - Exam #: [id number] Bilateral CC and MLO view(s) were taken. Technologist: Ritu Bond, Technologist Prior study comparison: July 15, 2019, bilateral digital woman screen mammo performed at [facility]. April 17, 2018, bilateral digital woman screen mammo performed at [facility]. June 26, 2016, digital woman screen mammo performed at [facility]. FINDINGS: The breast tissue is almost entirely fat. The Volpara volumetric breast density category is: A. There has been no change in the appearance of the mammogram from the prior studies. There is no interval development of dominant mass, architectural distortion, or grouped microcalcification typical of malignancy. 3-D tomosynthesis shows no additional findings. Assessment: BI-RADS/ACR category 1 mammogram. Negative Mammogram. Recommendation Routine screening mammogram of both breasts in 1 year (for women over age 40). This patient's Lifetime Breast Cancer RIsk is estimated at 6.4 %. This mammogram was interpreted with the aid of an FDA-approved computer-aided dectection system. Electronically Signed By: Spencer Cotton MD 07/18/20 1038
== END ==
LOC: M WHC 07:55
PROVIDERS: ATTEND Internal Medicine Infectious Disease
DX: Z12.31 Encounter for screening mammogram for malignant neoplasm of breast (principal); Z92.0 Personal history of contraception

== ENCOUNTER → 2020-10-13 | Outpatient (REF) | payer MEDICARE | LOC: M SFHCWAGY 13:25 | PROVIDERS: ATTEND Obstetrics & Gynecology | DX: Z12.4 Encounter for screening for malignant neoplasm of cervix (principal); Z85.44 Personal history of malignant neoplasm of other female genital organs; N95.8 Other specified menopausal and perimenopausal disorders | CPT/HCPCS: 87624; G0101; G0123 ==

== ENCOUNTER → 2020-11-18 | Outpatient (REF) | payer MEDICARE ==
[~2020-11-18] MED LIST changes: -LISI-538 PO; +LISI20TA33 PO
[2020-11-18 11:05] LABS: ALBUMIN 3.7 GM/DL (3.2-5.2); BILIRUBIN,TOTAL 0.9 MG/DL (0.2-1.0); CALCIUM LEVEL 9.7 MG/DL (8.8-10.2); CHOLESTEROL RISK RATIO 3.354 (<5); CREATININE FOR GFR 1.62 MG/DL (0.55-1.30); FREE T4 1.5 NG/DL (0.76-1.46); GLOMERULAR FILTRATION RATE 34.5 (>45); POTASSIUM SERUM 4.2 MEQ/L (3.5-5.1); THYROID STIMULATING HORMONE 0.786 uIU/ML (0.358-3.740); TOTAL PROTEIN 7.5 GM/DL (6.4-8.2)
[2020-11-20 14:07] LABS: % CD8 Pos Lymph 35.5 % (12.0-35.5); %CD4 Pos Lymphs 44.3 % (30.8-58.5); ABS Eosinophils 0.3 x10E3/uL (0.0-0.4); ABS Lymphs 2.1 x10E3/uL (0.7-3.1); ABS Monocytes 0.7 x10E3/uL (0.1-0.9); ABS Neutophils 3.1 x10E3/uL (1.4-7.0); Abs CD4 Helper 930 /uL (359-1519); Abs CD8 Suppres 746 /uL (109-897); CD4/CD8 Ratio 1.25 (0.92-3.72); Eosinophils 5 % (Not Estab.); HCT 37.2 % (34.0-46.6); HIV-1 RNA PCR QUANT 2 LC550285 <20 copies/mL (.); Immature Grans 1 % (Not Estab.); Lymphocytes 34 % (Not Estab.); MCH 35.2 pg (26.6-33.0); MCHC 34.9 g/dL (31.5-35.7); MCV 101 fL (79-97); Monocytes 11 % (Not Estab.); Neutrophils 48 % (Not Estab.); Platelets 300 x10E3/uL (150-450); RBC 3.69 x10E6/uL (3.77-5.28); RDW 12.6 % (11.7-15.4); WBC 6.2 x10E3/uL (3.4-10.8)
== END ==
LOC: M SFHCPLAZ 08:13
PROVIDERS: ATTEND Internal Medicine Infectious Disease
DX: B20 Human immunodeficiency virus [HIV] disease (principal); E03.9 Hypothyroidism, unspecified; I10 Essential (primary) hypertension

== ENCOUNTER → 2020-12-28 | Outpatient (REF) | payer MEDICARE ==
[2020-12-28 16:13] LABS: CALCIUM LEVEL 9.2 MG/DL (8.8-10.2); CREATININE FOR GFR 1.58 MG/DL (0.55-1.30); FREE T4 1.2 NG/DL (0.76-1.46); GLOMERULAR FILTRATION RATE 35.5 (>45); POTASSIUM SERUM 3.9 MEQ/L (3.5-5.1); THYROID STIMULATING HORMONE 5.69 uIU/ML (0.358-3.740)
== END ==
LOC: M SFHCPLAZ 13:47
PROVIDERS: ATTEND Internal Medicine Infectious Disease
DX: I10 Essential (primary) hypertension (principal); E03.9 Hypothyroidism, unspecified

== ENCOUNTER → 2021-02-14 | Outpatient (REF) | payer MEDICARE ==
[2021-02-14 13:27] LABS: APPEARANCE, URINE HAZY (CLEAR); BACTERIA, URINE AUTO 1+ (NEGATIVE); BILIRUBIN, URINE AUTO NEGATIVE (NEGATIVE); BLOOD, URINE BLOOD 1+ (NEGATIVE); COLOR, URINE YELLOW (YELLOW); GLUCOSE, URINE (UA) AUTO NEGATIVE (NEGATIVE); KETONE, URINE AUTO NEGATIVE (NEGATIVE); LEUKOCYTE ESTERASE, URINE AUTO 3+ (NEGATIVE); MUCUS, URINE SMALL (NEGATIVE); NITRITE, URINE AUTO NEGATIVE (NEGATIVE); PROTEIN, URINE AUTO NEGATIVE (NEGATIVE); RBC, URINE AUTO 9 /HPF (0-3); SPECIFIC GRAVITY URINE AUTO 1.006 (1.002-1.035); SQUAMOUS EPITHELIAL CELL UR AU 2 /HPF (0-6); UROBILINOGEN, URINE AUTO 0.2 mg/dL (0.0-2.0); WBC, URINE AUTO 15 /HPF (0-3)
== END ==
LOC: M SFHCPLAZ 12:45
PROVIDERS: ATTEND Internal Medicine Infectious Disease
DX: N28.9 Disorder of kidney and ureter, unspecified (principal)
CPT/HCPCS: 81001; G0463

== ENCOUNTER → 2021-02-23 | Outpatient (REF) | payer MEDICARE ==
[2021-02-23 15:50] LABS: CREATININE FOR GFR 1.54 MG/DL (0.55-1.30); GLOMERULAR FILTRATION RATE 36.6 (>45); POTASSIUM SERUM 4.2 MEQ/L (3.5-5.1)
== END ==
LOC: M SFHCPLAZ 13:43
PROVIDERS: ATTEND Internal Medicine Infectious Disease
DX: N18.32 Chronic kidney disease, stage 3b (principal)

== ENCOUNTER → 2021-04-03 | Outpatient (CLI) | payer MEDICARE ==
[2021-04-03 17:45] LABS: CREATININE FOR GFR 1.6 MG/DL (0.55-1.30); POTASSIUM SERUM 4.3 MEQ/L (3.5-5.1)
== END ==
LOC: M PLALAB 14:51
PROVIDERS: ATTEND Internal Medicine Infectious Disease
DX: I10 Essential (primary) hypertension (principal)
CPT/HCPCS: 36415; 80048; G0463

== ENCOUNTER → 2021-04-17 | Outpatient (CLI) | payer MEDICARE ==
[2021-04-17 17:41] LABS: CALCIUM LEVEL 9.2 MG/DL (8.8-10.2); CREATININE FOR GFR 1.57 MG/DL (0.55-1.30); GLOMERULAR FILTRATION RATE 35.8 (>45); POTASSIUM SERUM 3.9 MEQ/L (3.5-5.1)
== END ==
LOC: M PLALAB 13:57
PROVIDERS: ATTEND Internal Medicine Cardiovascular Disease
DX: I10 Essential (primary) hypertension (principal)

== ENCOUNTER → 2021-04-18 | Outpatient (REF) | payer MEDICARE ==
[~2021-04-18] MED LIST changes: -DOXY100C PO; +DOXY100C3 PO
== END ==
LOC: M LAB REF 17:00
PROVIDERS: ATTEND Internal Medicine Nephrology
DX: E83.42 Hypomagnesemia (principal)

== ENCOUNTER → 2021-06-05 | Outpatient (CLI) | payer MEDICARE ==
[2021-06-05 11:16] LABS: APPEARANCE, URINE CLEAR (CLEAR); BACTERIA, URINE AUTO 1+ (NEGATIVE); BILIRUBIN, URINE AUTO NEGATIVE (NEGATIVE); BLOOD, URINE BLOOD 1+ (NEGATIVE); COLOR, URINE YELLOW (YELLOW); GLUCOSE, URINE (UA) AUTO NEGATIVE (NEGATIVE); KETONE, URINE AUTO NEGATIVE (NEGATIVE); LEUKOCYTE ESTERASE, URINE AUTO 3+ (NEGATIVE); MUCUS, URINE SMALL (NEGATIVE); NITRITE, URINE AUTO NEGATIVE (NEGATIVE); PROTEIN, URINE AUTO NEGATIVE (NEGATIVE); RBC, URINE AUTO 2 /HPF (0-3); SPECIFIC GRAVITY URINE AUTO 1.008 (1.002-1.035); SQUAMOUS EPITHELIAL CELL UR AU 2 /HPF (0-6); UROBILINOGEN, URINE AUTO 0.2 mg/dL (0.0-2.0); WBC, URINE AUTO 11 /HPF (0-3)
[2021-06-05 11:48] LABS: ALBUMIN 3.5 GM/DL (3.2-5.2); BILIRUBIN,TOTAL 0.9 MG/DL (0.2-1.0); CALCIUM LEVEL 9.9 MG/DL (8.8-10.2); CREATININE FOR GFR 1.61 MG/DL (0.55-1.30); GLOMERULAR FILTRATION RATE 34.8 (>45); MAGNESIUM LEVEL 2.2 MG/DL (1.8-2.4); TOTAL PROTEIN 7.4 GM/DL (6.4-8.2)
[2021-06-07 02:09] LABS: % CD8 Pos Lymph 30.9 % (12.0-35.5); ABS Eosinophils 0.2 x10E3/uL (0.0-0.4); ABS Lymphs 2.2 x10E3/uL (0.7-3.1); ABS Monocytes 0.6 x10E3/uL (0.1-0.9); ABS Neutophils 3.2 x10E3/uL (1.4-7.0); Abs CD4 Helper 1034 /uL (359-1519); Abs CD8 Suppres 680 /uL (109-897); CD4/CD8 Ratio 1.52 (0.92-3.72); Eosinophils 3 % (Not Estab.); HCT 38.3 % (34.0-46.6); HGB 13.2 g/dL (11.1-15.9); HIV-1 RNA PCR QUANT 2 LC550285 <20 copies/mL (.); Immature Grans 0 % (Not Estab.); Lymphocytes 36 % (Not Estab.); MCH 35.3 pg (26.6-33.0); MCHC 34.5 g/dL (31.5-35.7); MCV 102 fL (79-97); Monocytes 10 % (Not Estab.); Neutrophils 50 % (Not Estab.); Platelets 301 x10E3/uL (150-450); RBC 3.74 x10E6/uL (3.77-5.28); RDW 11.9 % (11.7-15.4); WBC 6.3 x10E3/uL (3.4-10.8)
== END ==
LOC: M PLALAB 08:09
PROVIDERS: ATTEND Internal Medicine Cardiovascular Disease
DX: B20 Human immunodeficiency virus [HIV] disease (principal); N18.32 Chronic kidney disease, stage 3b
CPT/HCPCS: 36415; 80053; 81001; 83735; 86360; 87536; G0463

== ENCOUNTER → 2021-07-18 | Outpatient (CLI) | payer MEDICARE ==
[2021-07-18 17:47] LABS: BASO % 0.2 % (0.0-1.0); EOS # 0.1 10^3/uL (0.0-0.5); EOS % 1.3 % (0.0-3.0); HEMATOCRIT 35.7 % (36.0-47.0); HEMOGLOBIN 12.5 g/dl (12.0-15.5); LYMPH # 2.9 10^3/uL (1.5-5.0); LYMPH % 35.2 % (24.0-44.0); MEAN CORPUSCULAR HEMOGLOBIN 35.9 pg (27.0-33.0); MEAN CORPUSCULAR VOLUME 102.6 fl (80.0-96.0); MONO # 0.7 10^3/uL (0.0-0.8); MONO % 8.2 % (2.0-8.0); NEUTROPHILS # 4.5 10^3/uL (1.5-8.5); NEUTROPHILS % 54.9 % (36.0-66.0); PLATELET COUNT, AUTOMATED 326 10^3/uL (150-450); RED BLOOD COUNT 3.48 10^6/uL (4.00-5.40); WHITE BLOOD COUNT 8.3 10^3/uL (4.0-10.0)
[2021-07-18 17:54] LABS: ALBUMIN 3.4 GM/DL (3.2-5.2); BILIRUBIN,TOTAL 0.7 MG/DL (0.2-1.0); CALCIUM LEVEL 9.4 MG/DL (8.8-10.2); CREATININE FOR GFR 1.68 MG/DL (0.55-1.30); GLOMERULAR FILTRATION RATE 33.1 (>45); POTASSIUM SERUM 3.4 MEQ/L (3.5-5.1); TOTAL PROTEIN 7.2 GM/DL (6.4-8.2)
== END ==
LOC: M PLALAB 14:40
PROVIDERS: ATTEND Internal Medicine Infectious Disease
DX: R21 Rash and other nonspecific skin eruption (principal)
CPT/HCPCS: 36415; 80053; 85025; G0463

== ENCOUNTER → 2021-08-14 | Outpatient (CLI) | payer MEDICARE ==
--- NOTE | 2021-08-14 09:20 | REPMRS ---
Patient History The patient states she had a clinical breast exam in April 2021. Patient is postmenopausal, has history of high-risk lesion on a previous biopsy at age 51, and has history of other cancer at age 30. Family history of breast cancer at age 68 in sister. Took hormonal contraceptives for 12 years. Tomosynthesis is performed. Volpara breast density is a. [facility] lifetime risk of breast cancer 12.0%. Patient states no breast complaints today. Patient has signed MRS History Sheet. Digital Woman Screen Mammo: August 14, 2021 - Exam #: [id number] Bilateral CC and MLO view(s) were taken. Technologist: Juanita Luna Technologist Prior study comparison: July 18, 2020, bilateral digital woman screen mammo performed at [facility]. July 15, 2019, bilateral digital woman screen mammo performed at [facility]. FINDINGS: There are scattered fibroglandular densities. There has been no change in the appearance of the mammogram from the prior studies. There is a mild amount of residual fibroglandular tissue which is fairly symmetric. There is no interval development of dominant mass, architectural distortion, or clustered microcalcification suggestive of malignancy. Assessment: BI-RADS/ACR category 1 mammogram. Negative Mammogram. Recommendation Routine screening mammogram in 1 year (for women over age 40). This mammogram was interpreted with the aid of an FDA-approved computer-aided dectection system. Electronically Signed By: Mark Jackson MD 08/14/21 0920
== END ==
LOC: M WHC 08:15
PROVIDERS: ATTEND Internal Medicine Infectious Disease
DX: Z12.31 Encounter for screening mammogram for malignant neoplasm of breast (principal); Z78.0 Asymptomatic menopausal state; Z85.89 Personal history of malignant neoplasm of other organs and systems; Z80.3 Family history of malignant neoplasm of breast; Z92.0 Personal history of contraception; Z23 Encounter for immunization
CPT/HCPCS: 77063; 77067; 90682; G0008

== ENCOUNTER → 2021-09-26 | Outpatient (CLI) | payer MEDICARE ==
[2021-09-26 17:55] LABS: BASO % 0.6 % (0.0-1.0); EOS # 0.2 10^3/uL (0.0-0.5); EOS % 2.9 % (0.0-3.0); HEMATOCRIT 36.5 % (36.0-47.0); HEMOGLOBIN 12.5 g/dl (12.0-15.5); LYMPH # 2.8 10^3/uL (1.5-5.0); LYMPH % 40.6 % (24.0-44.0); MEAN CORPUSCULAR HEMOGLOBIN 35.4 pg (27.0-33.0); MEAN CORPUSCULAR HGB CONC 34.2 g/dl (32.0-36.5); MEAN CORPUSCULAR VOLUME 103.4 fl (80.0-96.0); MONO # 0.6 10^3/uL (0.0-0.8); NEUTROPHILS # 3.1 10^3/uL (1.5-8.5); NEUTROPHILS % 46.3 % (36.0-66.0); PLATELET COUNT, AUTOMATED 330 10^3/uL (150-450); RED BLOOD COUNT 3.53 10^6/uL (4.00-5.40); WHITE BLOOD COUNT 6.8 10^3/uL (4.0-10.0)
[2021-09-26 18:25] LABS: ALBUMIN 3.7 GM/DL (3.2-5.2); ALT/SGPT 18 U/L (12-78); BILIRUBIN,TOTAL 0.7 MG/DL (0.2-1.0); BLOOD UREA NITROGEN 23 MG/DL (7-18); CALCIUM LEVEL 9.2 MG/DL (8.8-10.2); CARBON DIOXIDE LEVEL 29 MEQ/L (21-32); CHLORIDE LEVEL 101 MEQ/L (98-107); CREATININE FOR GFR 1.63 MG/DL (0.55-1.30); GLOMERULAR FILTRATION RATE 34.1 (>45); GLUCOSE, FASTING 103 MG/DL (70-100); POTASSIUM SERUM 3.8 MEQ/L (3.5-5.1); RHEUMATOID FACTOR QUANT < 10.0 IU/ML (<15.0); SODIUM LEVEL 136 MEQ/L (136-145); TOTAL PROTEIN 7.4 GM/DL (6.4-8.2)
[2021-09-26 18:34] LABS: THYROID PEROXIDASE ANTIBODY 171.4 U/ML (<60.0)
[2021-09-26 18:39] LABS: ERYTHROCYTE SEDIMENTATION RATE 55 mm/hr (0-30)
== END ==
LOC: M PLALAB 15:02
PROVIDERS: ATTEND Allergy & Immunology Allergy
DX: L50.1 Idiopathic urticaria (principal)

== ENCOUNTER → 2021-12-04 | Outpatient (CLI) | payer MEDICARE ==
[2021-12-04 14:17] LABS: ALBUMIN 3.7 GM/DL (3.2-5.2); BILIRUBIN,TOTAL 0.7 MG/DL (0.2-1.0); CALCIUM LEVEL 9.5 MG/DL (8.8-10.2); CHOLESTEROL RISK RATIO 3.482 (<5); CREATININE FOR GFR 1.67 MG/DL (0.55-1.30); GLOMERULAR FILTRATION RATE 33.2 (>45); POTASSIUM SERUM 3.7 MEQ/L (3.5-5.1); THYROID STIMULATING HORMONE 3.52 uIU/ML (0.358-3.740); TOTAL PROTEIN 7.5 GM/DL (6.4-8.2)
[2021-12-05 16:09] LABS: % CD8 Pos Lymph 29.4 % (12.0-35.5); %CD4 Pos Lymphs 48.7 % (30.8-58.5); ABS Eosinophils 0.2 x10E3/uL (0.0-0.4); ABS Lymphs 2.2 x10E3/uL (0.7-3.1); ABS Monocytes 0.8 x10E3/uL (0.1-0.9); ABS Neutophils 3.3 x10E3/uL (1.4-7.0); Abs CD4 Helper 1071 /uL (359-1519); Abs CD8 Suppres 647 /uL (109-897); CD4/CD8 Ratio 1.66 (0.92-3.72); Eosinophils 3 % (Not Estab.); HCT 36.3 % (34.0-46.6); HGB 12.9 g/dL (11.1-15.9); HIV-1 RNA PCR QUANT 2 LC550285 <20 copies/mL (.); Immature Grans 1 % (Not Estab.); Lymphocytes 33 % (Not Estab.); MCH 35.2 pg (26.6-33.0); MCHC 35.5 g/dL (31.5-35.7); MCV 99 fL (79-97); Monocytes 12 % (Not Estab.); Neutrophils 50 % (Not Estab.); Platelets 309 x10E3/uL (150-450); RBC 3.66 x10E6/uL (3.77-5.28); RDW 12.2 % (11.7-15.4); WBC 6.5 x10E3/uL (3.4-10.8)
== END ==
LOC: M PLALAB 08:35
PROVIDERS: ATTEND Internal Medicine Infectious Disease
DX: B20 Human immunodeficiency virus [HIV] disease (principal); E03.9 Hypothyroidism, unspecified; I10 Essential (primary) hypertension

== ENCOUNTER 2022-03-02 15:03 | Outpatient (CLI) | payer MEDICARE ==
[~2022-03-02] VITALS: Ht 162.6 cm; Wt 87.3 kg
[~2022-03-02 15:03] MED LIST changes: +ALBUTEROL 90 MCG/ACT 8GM HFA INHALER INH PRN; +ALBUTEROL SULFATE 2.5 MG/0.5 ML INH NEB SOLN INH PRN; +EPINEPHrine INJ 1 MG/ML 1ML AMP IM PRN; +diphenhydrAMINE 50MG/ML VIAL (J1200) IV PRN; +methylPREDNISolone 125MG 2ML VIAL IV PRN
[2022-03-02 15:33] VITALS: BP 132/80
[2022-03-02] MEDS ORDERED: methylPREDNISolone 125MG 2ML VIAL IV ONE (15:35)
[2022-03-02] MEDS ORDERED: NS 1,000 ML IV SCH (15:35)
[2022-03-02] MEDS ORDERED: BEBTELOVIMAB 175MG 2ML VIAL (EUA) IV ONE (15:35)
[2022-03-02 16:30] VITALS: BP 109/60
[2022-03-02 17:00] VITALS: BP 141/80
== END 2022-03-02 17:30 | disposition home or self-care (01) ==
LOC: M OPCLI4PR 15:03 → M 4MAIN 15:08 → M OPCLI4PR 17:30
PROVIDERS: ATTEND Internal Medicine Infectious Disease
DX: U07.1 COVID-19 (principal)
CPT/HCPCS: 96375; J2930; M0222

== ENCOUNTER 2022-03-03 20:42 | Emergency (ER) | payer MEDICARE ==
[~2022-03-03] VITALS: Ht 162.6 cm; Wt 93.7 kg
[~2022-03-03 20:42] MED LIST changes: -ALBUTEROL 90 MCG/ACT 8GM HFA INHALER INH PRN; -ALBUTEROL SULFATE 2.5 MG/0.5 ML INH NEB SOLN INH PRN; -EPINEPHrine INJ 1 MG/ML 1ML AMP IM PRN; -diphenhydrAMINE 50MG/ML VIAL (J1200) IV PRN; -methylPREDNISolone 125MG 2ML VIAL IV PRN
[2022-03-03 20:55] VITALS: O2SAT 98
[2022-03-03 22:39] LABS: BASO # 0.1 10^3/uL (0.0-0.2); BASO % 0.3 % (0.0-1.0); EOS % 0.1 % (0.0-3.0); HEMATOCRIT 40.9 % (36.0-47.0); LYMPH # 3.8 10^3/uL (1.5-5.0); LYMPH % 19.4 % (24.0-44.0); MEAN CORPUSCULAR HEMOGLOBIN 35.3 pg (27.0-33.0); MEAN CORPUSCULAR VOLUME 96.2 fl (80.0-96.0); MONO # 0.6 10^3/uL (0.0-0.8); MONO % 3.2 % (2.0-8.0); NEUTROPHILS # 14.9 10^3/uL (1.5-8.5); NEUTROPHILS % 76.5 % (36.0-66.0); PLATELET COUNT, AUTOMATED 446 10^3/uL (150-450); RED BLOOD COUNT 4.25 10^6/uL (4.00-5.40); WHITE BLOOD COUNT 19.5 10^3/uL (4.0-10.0)
[2022-03-03 22:46] LABS: MEAN CORPUSCULAR HGB CONC 36.7 g/dl (32.0-36.5)
[2022-03-03] MEDS ORDERED: diphenhydrAMINE 50MG/ML VIAL (J1200) IV STA (23:23)
[2022-03-03 23:24] LABS: CALCIUM LEVEL 9.2 MG/DL (8.8-10.2); CREATININE FOR GFR 1.47 MG/DL (0.55-1.30); GLOMERULAR FILTRATION RATE 38.5 (>45)
[2022-03-03] MEDS ORDERED: FAMOTIDINE 20MG/2ML VIAL IV ONE (23:25)
[2022-03-04] MEDS ORDERED: GI COCKTAIL 50ML BTL(HYOSCYAMINE/MAALOX/LIDOCAINE VISCOUS)(1:3:1) PO ONE (00:25)
[2022-03-04] MEDS ORDERED: hydrOXYzine 50 MG TAB PO STA (02:08)
[2022-03-04] MEDS ORDERED: predniSONE 20 MG TAB PO ONE (02:10)
[2022-03-04] MEDS ORDERED: NS 1,000 ML IV ONE (02:40)
[2022-03-04] MEDS ORDERED: PRED20TA PO (06:01)
[2022-03-04] MEDS ORDERED: BENA25CA4 PO (06:01)
[2022-03-04] MEDS ORDERED: FAMO20TA PO (06:01)
[2022-03-04 06:15] VITALS: BP 141/71
== END 2022-03-04 06:37 | disposition home or self-care (01) ==
LOC: M ED 20:42
DX: L50.9 Urticaria, unspecified (principal); T50.B95A Adverse effect of other viral vaccines, initial encounter; E11.9 Type 2 diabetes mellitus without complications; I12.9 Hypertensive chronic kidney disease with stage 1 through stage 4 chronic kidney disease, or unspecified chronic kidney disease; Z86.718 Personal history of other venous thrombosis and embolism; E03.9 Hypothyroidism, unspecified; Z88.8 Allergy status to other drugs, medicaments and biological substances; Z79.899 Other long term (current) drug therapy; Z79.890 Hormone replacement therapy
CPT/HCPCS: 71045; 80047; 80048; 81001; 85025; 87040; 87086; 93041; 94760; 96361; 96374; 96375; 99285; J1200; J7512

== ENCOUNTER → 2022-04-18 | Outpatient (CLI) | payer MEDICARE ==
[~2022-04-18] MED LIST changes: +BENA25CA4 PO; +FAMO20TA PO; +PRED20TA PO
== END ==
LOC: M PLAIMG 14:24
PROVIDERS: ATTEND Internal Medicine Infectious Disease
DX: Z86.16 Personal history of COVID-19 (principal)

== ENCOUNTER → 2022-06-14 | Outpatient (CLI) | payer MEDICARE ==
[2022-06-14 14:38] LABS: ALBUMIN 3.8 GM/DL (3.2-5.2); BILIRUBIN,TOTAL 0.9 MG/DL (0.2-1.0); CALCIUM LEVEL 10.4 MG/DL (8.8-10.2); CREATININE FOR GFR 1.49 MG/DL (0.55-1.30); GLOMERULAR FILTRATION RATE 37.9 (>45); POTASSIUM SERUM 4.3 MEQ/L (3.5-5.1); THYROID STIMULATING HORMONE 2.59 uIU/ML (0.358-3.740); TOTAL PROTEIN 7.3 GM/DL (6.4-8.2)
[2022-06-16 03:07] LABS: % CD8 Pos Lymph 30.9 % (12.0-35.5); %CD4 Pos Lymphs 45.1 % (30.8-58.5); ABS Eosinophils 0.3 x10E3/uL (0.0-0.4); ABS Lymphs 2.6 x10E3/uL (0.7-3.1); ABS Monocytes 0.7 x10E3/uL (0.1-0.9); Abs CD4 Helper 1173 /uL (359-1519); Abs CD8 Suppres 803 /uL (109-897); CD4/CD8 Ratio 1.46 (0.92-3.72); Eosinophils 5 % (Not Estab.); HCT 36.3 % (34.0-46.6); HGB 13.1 g/dL (11.1-15.9); HIV-1 RNA PCR QUANT 2 LC550285 <20 copies/mL (.); Immature Grans 0 % (Not Estab.); Lymphocytes 39 % (Not Estab.); MCH 36.9 pg (26.6-33.0); MCHC 36.1 g/dL (31.5-35.7); MCV 102 fL (79-97); Monocytes 10 % (Not Estab.); Neutrophils 45 % (Not Estab.); Platelets 281 x10E3/uL (150-450); RBC 3.55 x10E6/uL (3.77-5.28); RDW 12.3 % (11.7-15.4); WBC 6.7 x10E3/uL (3.4-10.8)
== END ==
LOC: M PLALAB 09:23
PROVIDERS: ATTEND Internal Medicine Infectious Disease
DX: B20 Human immunodeficiency virus [HIV] disease (principal); E03.9 Hypothyroidism, unspecified

== ENCOUNTER → 2022-08-22 | Outpatient (CLI) | payer MEDICARE | LOC: M WHC 07:28 | PROVIDERS: ATTEND Internal Medicine Infectious Disease | DX: Z12.31 Encounter for screening mammogram for malignant neoplasm of breast (principal) ==

== ENCOUNTER → 2022-10-15 | Outpatient (CLI) | payer MEDICARE ==
[~2022-10-15] MED LIST changes: +AMLO1TAB24 PO; +DOLU1TAB PO; +HYDR-3490 PO; +LEVO88TA3 PO; +LISI10TA22 PO; +POTA-149 PO
== END ==
LOC: M LABSMTC 10:11
PROVIDERS: ATTEND Anesthesiology
DX: Z01.812 Encounter for preprocedural laboratory examination (principal); Z20.822 Contact with and (suspected) exposure to COVID-19

== ENCOUNTER 2022-10-18 09:45 | Day surgery (SDC) | payer MEDICARE ==
[~2022-10-18] VITALS: Ht 162.6 cm; Wt 90.6 kg
[~2022-10-18 09:45] MED LIST changes: +NS 1,000 ML IV ONE
[2022-10-18] MEDS ORDERED: LIDOCAINE 2% 100MG/5ML SDV (FOR ANES.) As Ordered ONE (10:37)
[2022-10-18] MEDS ORDERED: GLYCOPYRROLATE INJ 0.2 MG/ML 2 ML VIAL As Ordered ONE (10:37)
[2022-10-18] MEDS ORDERED: propofoL 200 MG/20 ML VIAL As Ordered ONE (10:37)
[2022-10-18 11:50] VITALS: BP 120/60
== END 2022-10-18 12:09 | disposition home or self-care (01) ==
LOC: M OPP 09:45
PROVIDERS: ATTEND Internal Medicine Gastroenterology
DX: Z86.010 Personal history of colon polyps (principal); K57.30 Diverticulosis of large intestine without perforation or abscess without bleeding; K64.8 Other hemorrhoids; I10 Essential (primary) hypertension; E03.9 Hypothyroidism, unspecified; K21.9 Gastro-esophageal reflux disease without esophagitis; G43.909 Migraine, unspecified, not intractable, without status migrainosus; B20 Human immunodeficiency virus [HIV] disease; Z88.8 Allergy status to other drugs, medicaments and biological substances; Z79.890 Hormone replacement therapy; Z79.899 Other long term (current) drug therapy; Z80.0 Family history of malignant neoplasm of digestive organs; Z82.49 Family history of ischemic heart disease and other diseases of the circulatory system

== ENCOUNTER → 2022-12-13 | Outpatient (CLI) | payer MEDICARE ==
[~2022-12-13] MED LIST changes: -NS 1,000 ML IV ONE
[2022-12-13 11:07] LABS: HEMOGLOBIN A1c 5.1 % (4.0-6.0)
[2022-12-13 11:17] LABS: ALBUMIN 3.7 G/DL (3.2-5.2); CALCIUM LEVEL 9.7 MG/DL (8.3-10.6); CHOLESTEROL RISK RATIO 3.06 (<5); CREATININE FOR GFR 1.26 MG/DL (0.55-1.30); FREE T4 1.38 NG/DL (0.89-1.76); GLOMERULAR FILTRATION RATE 45.8 (>45); LDL CHOLESTEROL 118.6 MG/DL (<100); MAGNESIUM LEVEL 1.9 MG/DL (1.8-2.4); POTASSIUM SERUM 4.8 MMOL/L (3.5-5.1); THYROID STIMULATING HORMONE 2.673 uIU/ML (0.55-4.78); TOTAL PROTEIN 7.2 G/DL (5.7-8.2)
[2022-12-17 14:08] LABS: % CD8 Pos Lymph 29.8 % (12.0-35.5); %CD4 Pos Lymphs 44.4 % (30.8-58.5); ABS Basophils 0.1 x10E3/uL (0.0-0.2); ABS Eosinophils 0.5 x10E3/uL (0.0-0.4); ABS Lymphs 2.6 x10E3/uL (0.7-3.1); ABS Monocytes 0.7 x10E3/uL (0.1-0.9); ABS Neutophils 3.5 x10E3/uL (1.4-7.0); Abs CD4 Helper 1154 /uL (359-1519); Abs CD8 Suppres 775 /uL (109-897); CD4/CD8 Ratio 1.49 (0.92-3.72); Eosinophils 7 % (Not Estab.); HCT 37.8 % (34.0-46.6); HGB 13.3 g/dL (11.1-15.9); HIV-1 RNA PCR QUANT 2 LC550285 <20 copies/mL (.); Immature Grans 0 % (Not Estab.); Lymphocytes 36 % (Not Estab.); MCH 35.3 pg (26.6-33.0); MCHC 35.2 g/dL (31.5-35.7); MCV 100 fL (79-97); Monocytes 9 % (Not Estab.); Neutrophils 47 % (Not Estab.); Platelets 302 x10E3/uL (150-450); RBC 3.77 x10E6/uL (3.77-5.28); RDW 12.2 % (11.7-15.4); WBC 7.3 x10E3/uL (3.4-10.8)
== END ==
LOC: M PLALAB 08:57
PROVIDERS: ATTEND Internal Medicine Infectious Disease
DX: B20 Human immunodeficiency virus [HIV] disease (principal); E03.9 Hypothyroidism, unspecified; M62.81 Muscle weakness (generalized); Z13.1 Encounter for screening for diabetes mellitus; Z13.220 Encounter for screening for lipoid disorders; Z79.899 Other long term (current) drug therapy

== ENCOUNTER → 2023-03-11 | Outpatient (REF) | payer MEDICARE | LOC: M SFHCWAGY 18:06 | PROVIDERS: ATTEND Obstetrics & Gynecology | DX: Z12.4 Encounter for screening for malignant neoplasm of cervix (principal) | CPT/HCPCS: 87624; G0123 ==

== ENCOUNTER → 2023-06-20 | Outpatient (CLI) | payer MEDICARE ==
[~2023-06-20] MED LIST changes: -K-TA10TA2 PO; +POTA-165 PO
[2023-06-20 13:27] LABS: ALBUMIN 3.7 G/DL (3.2-5.2); BILIRUBIN,TOTAL 0.9 MG/DL (0.3-1.2); CALCIUM LEVEL 9.1 MG/DL (8.3-10.6); CREATININE FOR GFR 1.29 MG/DL (0.55-1.30); GLOMERULAR FILTRATION RATE 44.6 (>45); POTASSIUM SERUM 4.3 MMOL/L (3.5-5.1)
[2023-06-22 03:07] LABS: % CD8 Pos Lymph 30.4 % (12.0-35.5); %CD4 Pos Lymphs 46.3 % (30.8-58.5); ABS Basophils 0.1 x10E3/uL (0.0-0.2); ABS Eosinophils 0.3 x10E3/uL (0.0-0.4); ABS Lymphs 2.3 x10E3/uL (0.7-3.1); ABS Monocytes 0.8 x10E3/uL (0.1-0.9); ABS Neutophils 3.3 x10E3/uL (1.4-7.0); Abs CD4 Helper 1065 /uL (359-1519); Abs CD8 Suppres 699 /uL (109-897); CD4/CD8 Ratio 1.52 (0.92-3.72); Eosinophils 4 % (Not Estab.); HIV-1 RNA PCR QUANT 2 LC550285 30 copies/mL (.); HIV-1 RNA PCR QUANT 3 LC550285 1.477 (.); Immature Grans 1 % (Not Estab.); Lymphocytes 34 % (Not Estab.); MCH 35.8 pg (26.6-33.0); MCHC 35.1 g/dL (31.5-35.7); MCV 102 fL (79-97); Monocytes 11 % (Not Estab.); Neutrophils 49 % (Not Estab.); Platelets 309 x10E3/uL (150-450); RBC 3.63 x10E6/uL (3.77-5.28); WBC 6.7 x10E3/uL (3.4-10.8)
== END ==
LOC: M PLALAB 08:07
PROVIDERS: ATTEND Internal Medicine Infectious Disease
DX: B20 Human immunodeficiency virus [HIV] disease (principal)

== ENCOUNTER → 2023-10-14 | Outpatient (CLI) | payer MEDICARE | LOC: M WHC 11:55 | PROVIDERS: ATTEND Obstetrics & Gynecology | DX: Z12.31 Encounter for screening mammogram for malignant neoplasm of breast (principal) ==

== ENCOUNTER → 2023-12-16 | Outpatient (CLI) | payer MEDICARE ==
[2023-12-16 12:08] LABS: ALBUMIN 3.9 G/DL (3.2-5.2); BILIRUBIN,TOTAL 0.9 MG/DL (0.3-1.2); CALCIUM LEVEL 9.3 MG/DL (8.3-10.6); CHOLESTEROL RISK RATIO 2.9 (<5); CREATININE FOR GFR 1.29 MG/DL (0.55-1.30); GLOMERULAR FILTRATION RATE 44.4 (>45); HDL CHOLESTEROL 70.5 MG/DL (>40); LDL CHOLESTEROL 117.7 MG/DL (<100); NON-HDL-C 134.5 MG/DL; POTASSIUM SERUM 4.3 MMOL/L (3.5-5.1); TOTAL PROTEIN 7.4 G/DL (5.7-8.2)
[2023-12-16 12:09] LABS: THYROID STIMULATING HORMONE 1.777 uIU/ML (0.55-4.78)
[2023-12-18 04:45] LABS: % CD8 Pos Lymph 31.4 % (12.0-35.5); %CD4 Pos Lymphs 43.8 % (30.8-58.5); ABS Eosinophils 0.3 x10E3/uL (0.0-0.4); ABS Lymphs 2.6 x10E3/uL (0.7-3.1); ABS Monocytes 0.7 x10E3/uL (0.1-0.9); ABS Neutophils 3.6 x10E3/uL (1.4-7.0); Abs CD4 Helper 1139 /uL (359-1519); Abs CD8 Suppres 816 /uL (109-897); CD4/CD8 Ratio 1.39 (0.92-3.72); Eosinophils 4 % (Not Estab.); HCT 38.2 % (34.0-46.6); HGB 13.5 g/dL (11.1-15.9); HIV-1 RNA PCR QUANT 2 LC550285 130 copies/mL (.); HIV-1 RNA PCR QUANT 3 LC550285 2.114 (.); Immature Grans 0 % (Not Estab.); Lymphocytes 35 % (Not Estab.); MCH 36.4 pg (26.6-33.0); MCHC 35.3 g/dL (31.5-35.7); MCV 103 fL (79-97); Monocytes 9 % (Not Estab.); Neutrophils 51 % (Not Estab.); Platelets 317 x10E3/uL (150-450); RBC 3.71 x10E6/uL (3.77-5.28); RDW 12.2 % (11.7-15.4); WBC 7.2 x10E3/uL (3.4-10.8)
== END ==
LOC: M PLALAB 08:31
PROVIDERS: ATTEND Internal Medicine Infectious Disease
DX: B20 Human immunodeficiency virus [HIV] disease (principal); E03.9 Hypothyroidism, unspecified; Z13.220 Encounter for screening for lipoid disorders; Z13.1 Encounter for screening for diabetes mellitus; Z79.899 Other long term (current) drug therapy

== ENCOUNTER → 2023-12-20 | Outpatient (CLI) | payer MEDICARE | LOC: M PLALAB 08:53 | PROVIDERS: ATTEND Internal Medicine Infectious Disease | DX: B20 Human immunodeficiency virus [HIV] disease (principal) ==

== ENCOUNTER → 2024-02-17 | Outpatient (CLI) | payer MEDICARE ==
[2024-02-18 18:07] LABS: HIV-1 RNA PCR QUANT 2 LC550285 <20 copies/mL (.)
== END ==
LOC: M PLALAB 08:56
PROVIDERS: ATTEND Internal Medicine Infectious Disease
DX: B20 Human immunodeficiency virus [HIV] disease (principal)

== ENCOUNTER → 2024-02-26 | Outpatient (REF) | payer MEDICARE | LOC: M LAB REF 17:23 | PROVIDERS: ATTEND Internal Medicine Nephrology | DX: N30.00 Acute cystitis without hematuria (principal) ==

== ENCOUNTER → 2024-06-15 | Outpatient (CLI) | payer MEDICARE ==
[2024-06-15 12:15] LABS: ALBUMIN 4.1 G/DL (3.2-5.2); BILIRUBIN,TOTAL 1.2 MG/DL (0.3-1.2); CALCIUM LEVEL 9.8 MG/DL (8.3-10.6); CHOLESTEROL RISK RATIO 2.87 (<5); CREATININE FOR GFR 1.44 MG/DL (0.55-1.30); GLOMERULAR FILTRATION RATE 39.1 (>45); HDL CHOLESTEROL 61.5 MG/DL (>40); LDL CHOLESTEROL 90.5 MG/DL (<100); NON-HDL-C 115.5 MG/DL; POTASSIUM SERUM 4.2 MMOL/L (3.5-5.1); TOTAL PROTEIN 7.5 G/DL (5.7-8.2)
[2024-06-15 12:17] LABS: THYROID STIMULATING HORMONE 2.145 uIU/ML (0.55-4.78)
[2024-06-16 11:08] LABS: % CD4+ LYMPHS 46.4 % (30.8-58.5); ABSOLUTE CD4 HELPER 1114 /uL (359-1519); BASOPHILS 1 % (Not Estab.); BASOPHILS ABSOLUTE 0.1 x10E3/uL (0.0-0.2); EOSINOPHILS 5 % (Not Estab.); EOSINOPHILS ABSOLUTE 0.3 x10E3/uL (0.0-0.4); HCT 40.8 % (34.0-46.6); HGB 13.8 g/dL (11.1-15.9); LYMPHOCYTES 34 % (Not Estab.); LYMPHOCYTES ABSOLUTE 2.4 x10E3/uL (0.7-3.1); MCH 35.7 pg (26.6-33.0); MCHC 33.8 g/dL (31.5-35.7); MCV 105 fL (79-97); MONOCYTES 10 % (Not Estab.); MONOCYTES ABSOLUTE 0.7 x10E3/uL (0.1-0.9); NEUTROPHILS 50 % (Not Estab.); NEUTROPHILS ABSOLUTE 3.4 x10E3/uL (1.4-7.0); PLT 298 x10E3/uL (150-450); RBC 3.87 x10E6/uL (3.77-5.28); RDW 12.5 % (11.7-15.4); WBC 6.9 x10E3/uL (3.4-10.8)
[2024-06-18 13:57] LABS: HIV-1 RNA PCR QUANT 2 NOT DETECTED copies/mL (NOT DETECTED); HIV-1 RNA PCR QUANT 3 NOT DETECTED (NOT DETECTED)
== END ==
LOC: M PLALAB 08:18
PROVIDERS: ATTEND Internal Medicine Infectious Disease
DX: B20 Human immunodeficiency virus [HIV] disease (principal); E03.9 Hypothyroidism, unspecified; E78.00 Pure hypercholesterolemia, unspecified

== ENCOUNTER → 2024-07-16 | Outpatient (REF) | payer MEDICARE ==
[2024-07-20 12:20] LABS: HPV APTIMA Not Detected (Not Detected)
== END ==
LOC: M SFHCWAGY 17:40
PROVIDERS: ATTEND Obstetrics & Gynecology
DX: Z12.4 Encounter for screening for malignant neoplasm of cervix (principal)
CPT/HCPCS: 87624; G0123

== ENCOUNTER → 2024-11-11 | Outpatient (CLI) | payer MEDICARE | LOC: M WHC 08:22 | PROVIDERS: ATTEND Obstetrics & Gynecology | DX: Z12.31 Encounter for screening mammogram for malignant neoplasm of breast (principal) ==

== ENCOUNTER → 2024-12-21 | Outpatient (CLI) | payer MEDICARE ==
[2024-12-21 11:32] LABS: ALBUMIN 3.6 G/DL (3.2-5.2); CALCIUM LEVEL 9.2 MG/DL (8.3-10.6); CHOLESTEROL RISK RATIO 2.42 (<5); CREATININE FOR GFR 1.49 MG/DL (0.55-1.30); GLOMERULAR FILTRATION RATE 37.5 (>45); HDL CHOLESTEROL 62.6 MG/DL (>40); LDL CHOLESTEROL 72.6 MG/DL (<100); NON-HDL-C 89.4 MG/DL; POTASSIUM SERUM 4.8 MMOL/L (3.5-5.1); TOTAL PROTEIN 7.3 G/DL (5.7-8.2)
[2024-12-23 11:47] LABS: HIV-1 RNA PCR QUANT 2 NOT DETECTED copies/mL (NOT DETECTED); HIV-1 RNA PCR QUANT 3 NOT DETECTED (NOT DETECTED)
[2024-12-23 16:06] LABS: HERPES ZOSTER, VARICELLA IgG 4.79 S/CO (>=1.00)
[2024-12-23 16:37] LABS: % CD4 47 % (30-61); %CD8 29 % (12-42); ABSOLUTE CD4 CELLS 1081 cells/uL (490-1740); ABSOLUTE CD8 CELLS 663 cells/uL (180-1170); ABSOLUTE LYMPHOCYTES 2281 cells/uL (850-3900); CD4 CD8 RATIO 1.63 (0.86-5.00)
== END ==
LOC: M PLALAB 08:22
PROVIDERS: ATTEND Internal Medicine Infectious Disease
DX: B20 Human immunodeficiency virus [HIV] disease (principal); E78.00 Pure hypercholesterolemia, unspecified

== ENCOUNTER → 2025-06-22 | Outpatient (CLI) | payer MEDICARE ==
[2025-06-22 11:32] LABS: ESTIMATED AVERAGE GLUCOSE 111.0 MG/DL (60-110)
[2025-06-22 12:02] LABS: ALT/SGPT 16.0 U/L (7.0-40); AST/SGOT 18.0 U/L (<34); CALCIUM LEVEL 9.7 MG/DL (8.3-10.6); CARBON DIOXIDE LEVEL 28.0 MMOL/L (20-31); CHLORIDE LEVEL 100.0 MMOL/L (98-107); CHOLESTEROL LEVEL 138.0 MG/DL (<200); CHOLESTEROL RISK RATIO 2.45 (<5); CREATININE FOR GFR 1.5 MG/DL (0.55-1.30); GLOMERULAR FILTRATION RATE 38.7 (>45); LDL CHOLESTEROL 60.3 MG/DL (<100); NON-HDL-C 81.7 MG/DL; POTASSIUM SERUM 4.5 MMOL/L (3.5-5.1); SODIUM LEVEL 137.0 MMOL/L (136-145); TRIGLYCERIDES LEVEL 107.0 MG/DL (<150)
[2025-06-22 12:04] LABS: FREE T4 1.5 NG/DL (0.89-1.76)
== END ==
LOC: M PLALAB 08:44
PROVIDERS: ATTEND Internal Medicine Infectious Disease
DX: E03.9 Hypothyroidism, unspecified (principal); E78.00 Pure hypercholesterolemia, unspecified; B20 Human immunodeficiency virus [HIV] disease; Z79.899 Other long term (current) drug therapy

== ENCOUNTER → 2025-09-20 | Outpatient (REF) | payer MEDICARE ==
[2025-09-22 13:37] LABS: HPV APTIMA Not Detected (Not Detected)
== END ==
LOC: M SFHCWAGY 13:06
PROVIDERS: ATTEND Obstetrics & Gynecology
DX: Z12.4 Encounter for screening for malignant neoplasm of cervix (principal); Z77.9 Other contact with and (suspected) exposures hazardous to health
CPT/HCPCS: 87624; G0123